=== PATIENT | female | born 1970 | race Two or more races ===

== ENCOUNTER 2020-11-24 13:54 | Outpatient (REF) | payer OTHER, SELFPAY ==
--- NOTE | 2020-11-24 | MM_ITS ---
EXAMINATION: MM SCREENING DIGITAL BREAST TOMOSYNTHESIS, BILATERAL CLINICAL INFORMATION: Screening. Asymptomatic. The lifetime risk of breast cancer based on the Tyrer-Cuzick Model is 9%. COMPARISON: Mammography: 11/19/2019, 11/12/2018, 03/16/2015 TECHNIQUE: Digital breast tomosynthesis is performed in both the craniocaudal and mediolateral oblique views along with computer-aided detection (CAD). Synthesized 2D images are generated from the tomosynthesis. FINDINGS: There are scattered areas of fibroglandular density (ACR BI-RADS breast composition Category b). Parenchymal pattern is similar to prior studies. There is no interval mass or developing density or architectural abnormality. Again, there is a chronic stable 2 cm mass anterior central right breast and a benign coarse calcification central upper outer right breast. Fine calcifications mid upper inner left breast are stable from prior study. MM/MM tomosynthesis screening BI IMPRESSION: No significant changes from prior exams. ASSESSMENT: BI-RADS 2: Benign RECOMMENDATION: Routine annual mammography screening. This patient's information was entered into a reminder system with a target due date for their next mammogram.
== END 2020-11-24 13:55 | disposition home or self-care (01) ==
LOC: HO.MAMMO 13:54
PROVIDERS: Visit Provider Internal Medicine
DX: Z12.31 Encounter for screening mammogram for malignant neoplasm of breast (principal)
CPT/HCPCS: 77063; 77067

== ENCOUNTER 2021-01-04 10:13 | Outpatient (REF) | payer OTHER, SELFPAY | END 2021-01-04 10:14 | disposition home or self-care (01) | LOC: HO.LAB 10:13 | PROVIDERS: Visit Provider Internal Medicine | DX: Z20.822 Contact with and (suspected) exposure to COVID-19 (principal) | CPT/HCPCS: 36415; C9803; U0003; U0005 ==

== ENCOUNTER 2021-05-08 11:40 | Emergency (ER) | payer OTHER, SELFPAY ==
--- NOTE | 2021-05-08 | ECG_ITS ---
Test Reason : CHEST PAIN Blood Pressure : / mmHG Vent. Rate : 069 BPM Atrial Rate : 069 BPM P-R Int : 186 ms QRS Dur : 082 ms QT Int : 384 ms P-R-T Axes : 061 073 040 degrees QTc Int : 411 ms Normal sinus rhythm Septal infarct (cited on or before 08-MAY-2021) Abnormal ECG When compared with ECG of 17-JUN-2019 12:09, Nonspecific T wave abnormality, worse in Inferior leads and lateral leads Referred By: Generic ED Physician Electronically Signed By:ARIE POE
--- NOTE | ~2021-05-08 | XR_ITS ---
EXAMINATION: XR CHEST CLINICAL INFORMATION: Chest pain COMPARISON: 06/17/2019 TECHNIQUE: Frontal view of the chest was obtained. FINDINGS: No significant abnormality is noted involving the heart, lungs, mediastinum, bony thorax or soft tissues. XR/XR chest 1V IMPRESSION: Unremarkable examination.
--- NOTE | ~2021-05-08 | CT_ITS ---
EXAMINATION: CT HEAD WITHOUT CONTRAST CLINICAL INFORMATION: Headache and dizziness COMPARISON: None TECHNIQUE: Contiguous axial imaging was performed from the skull base to vertex without intravenous administration of contrast. This CT examination was performed using dose optimization techniques as appropriate, variously including the following: *Automated exposure control *Adjustment of mA and/or kV according to patient size (this includes techniques or standardized protocols for targeted exams where dose is matched to indication/reason for exam; i.e. extremities or head) *Use of iterative reconstruction technique DLP: 731 mGy-cm FINDINGS: There is no evidence of acute intracranial hemorrhage or territorial infarction. No abnormal mass effect or midline shift is seen. Del Rosario to white matter differentiation is well preserved. No extra-axial fluid collections are identified. The ventricles are normal in size. There is no abnormal attenuation within the brain parenchyma. The osseous structures and soft tissues are normal. The mastoid air cells and visualized portions of the paranasal sinuses are well aerated. CT/CT head/brain wo con IMPRESSION: No acute intracranial pathology.
[2021-05-08 12:53] VITALS: BP 123/61; PULSE 74; RESP 18; TEMP 36.1; O2SAT 98; BMI 29.3
--- NOTE | 2021-05-08 15:04 | ED_ITS ---
HPI - General Adult General Chief complaint: General Medical Stated complaint: headache Time Seen by Provider: 05/08/21 14:37 Source: patient and installation supervisor Mode of arrival: ambulatory Limitations: no limitations History of Present Illness HPI narrative: 51-year-old female came in for evaluation of multiple compla ints. after patient celebrated her brother birthday 2 days ago, patient woke up that night with mild chest pain, cramps in her both legs, dizziness, and headache, patient felt jittery and had 1 stool incontinence. Next day patient been having a constant dull ache to the mid chest with no radia tion, but felt dizziness (room spinning) with headache all day yesterday. Above symptoms persist till today. No fever, no chills. Related Data Previous Rx's Medication Instructions Recorded pravastatin 20 mg tablet 20 mg PO BEDTIME 90 Days #90 tab 04/23/21 Allergies Allergy/AdvReac Type Severity Reaction Status Date / Time adalimumab [Humira] Allergy Intermediate psoriasis Verified 04/23/21 16:23 worsened atorvastatin Allergy Intermediate dizziness Verified 04/23/21 16:23 Penicillins [PENICILLINS] Allergy Intermediate DIZZINESS, Verified 04/23/21 16:23 rash rosuvastatin AdvReac Intermediate diarrhea, Verified 04/23/21 16:24 dizziness Review of Systems Review of Systems: all other systems are reviewed and are negative Constitutional: Reports as per HPI and Reports no additional constitutional complaints Eyes: Reports as per HPI and Reports no additional eye complaints Reports system reviewed and no additional complaints, except as documented Cardiovascular: Reports as per HPI and Reports no additional cardiovascular complaints Respiratory: Reports as per HPI and Reports no additional respiratory complaints Gastrointestinal: Reports as per HPI and Reports no additional gastrointestinal complaints Genitourinary: Reports no additional female genitourinary complaints Musculoskeletal: Reports no additional musculoskeletal complaints Skin/Breast: Reports system reviewed and no additional complaints, except as docu Psychiatric: Reports no additional psychiatric complaints Endocrine: Reports no additional endocrine complaints Hematologic/Lymphatic: Reports no additional hematologic/lymphatic complaints Allergic/Immunologic: Reports no additional allergic/immunologic complaints Reports system reviewed and no additional complaints, except as documented and Reports Abnormal speech present [facility] Past Medical History Medical History Dyslipidemia Psoriasis Surgical History No pertinent past surgical history Family History Family History Father Hypertension Stroke Mother Hypertension Son In good health Son In good health Son In good health Brother In good health Brother In good health Brother In good health Brother In good health Brother In good health Social History Social History Housing: House Alcohol intake: never Patient Tobacco Use Status: Current everyday Tobacco user Tobacco use type: Cigarette Cigarettes Per Day: 10 e-Cigarette/Vaping Use: Never Used Second Hand Smoke Exposure: No Use of substances other than those prescribed or required for medical reasons: No Advance Directives: No Advance Directives Information Provided: No Patient : No service: No Current occupational status: employed Current occupational exposures/hazards: No Physical Exam Vital Signs: Vital Signs: Last Vital Signs Temp 97.7 F 05/08/21 15:27 Pulse 73 05/08/21 15:27 Resp 18 05/08/21 15:27 BP 128/71 05/08/21 15:27 Pulse Ox 100 05/08/21 15:27 Body Mass Index 29.3 vital signs have been reviewed as appeared to be correct. Blood pressure normal. Heart rate normal. Respiration rate normal. Temperature normal. Oxygen saturation normal. Appearance: Alert. Oriented X3. No acute distress. Head: Normal external exam. Normocephalic. Atraumatic. No Gloria signs noted. No raccoon eyes noted Eyes: PERRLA. EOMI. Conjunctiva and sclera normal. Eyelids normal. ENT: TM's Normal. Pharynx normal. Uvula midline. Moist mucous membranes. No trismus noted. No drooling noted. No muffled voice noted. Neck: Normal inspection. Neck supple. FROM. No adenopathy. Thyroid Normal. No meningeal signs. No neck mass noted. CVS: Normal heart rate and rhythm. Heart sound normal. No murmurs noted. Pulses normal throughout. Respiratory: No respiratory distress. Painless inspiration. Breath sounds normal. No wheezes/rales/rhonchi noted. Chest nontender. No accessory muscle usage noted or decreased air movement noted. Abdomen: Soft and nontender. Bowel sounds normal in all 4 quadrants. No distention noted. No organomegaly noted. No visible injury noted. Back: No CVA tenderness. Full range of motion noted. Skin: Skin warm and dry. Normal skin color. Normal skin turgor. No rashes/lesions/lacerations noted. Extremities: No lower extremity edema. Extremities exhibit normal range of motion. Extremities nontender. Neuro: Oriented X 3. No motor deficit. No sensory deficit. Reflexes normal. Course Course Course Narrative: assessment and plan. This is a 51-year-old female came in with multiple complaints of chest pain, dizziness, headache, overall not feeling well. Patient has a normal neuro exam /Head CT, unremarkable EKG with a negative high sensitive troponin, rest of the labs are unremarkable. Reassured the patient and discharged With follow-up with her PCP as an outpatient. Medical Decision Making Lab Data Lab results reviewed: Yes I reviewed the patient's lab results. Result diagrams: 05/08/21 15:26 05/08/21 15:26 Labs: Lab Results 05/08/21 05/08/21 05/08/21 Range/Units 15:26 15:26 15:26 WBC 10.4 (4.8-10.8) X10*3/uL RBC 4.46 (4.20-5.50) X10*6/uL Hgb 13.2 (12.0-16.0) g/dl Hct 40.2 (37-47) % MCV 90.1 (80-98) fL MCH 29.6 (27.0-33.0) pg MCHC 32.8 (31.0-35.0) g/dl RDW 13.6 (11.0-16.0) % Plt Count 381 (160-400) X10*3/uL MPV 9.6 (9.4-12.3) fL Immature Gran % (Auto) 0.4 (0.0-0.4) % Neut % (Auto) 52.8 (45-73) % Lymph % (Auto) 34.0 (20-40) % Prentiss % (Auto) 7.7 (2-11) % Eos % (Auto) 3.8 (0-4) % Baso % (Auto) 1.3 (0-2) % Lymph # (Auto) 3.6 (1.2-4.9) X10*3/uL Prentiss # (Auto) 0.8 (0.1-1.2) X10*3/uL Eos # (Auto) 0.4 (0.0-0.4) X10*3/uL Baso # (Auto) 0.1 (0.0-0.2) X10*3/uL Abs Immat Gran (auto) 0.04 H (0.00-0.03) X10*3/uL Absolute Neuts (auto) 5.5 (2.0-8.3) X10*3/uL Absolute Nucleated RBC 0.000 (0.0-0.012) X10*3/uL Nucleated RBC % (auto) 0.0 (0.0-0.2) /100WBC D-Dimer < 200 NG/ML Sodium 140 (135-145) mmol/L Potassium 4.1 (3.3-5.1) mmol/L Chloride 106 (96-108) mmol/L Carbon Dioxide 25 (22-29) mmol/L Anion Gap 13 (12-20) BUN 19 H (9-16) mg/dL Creatinine 0.78 (0.5-1.4) mg/dL Estim Creat Clear Calc 94.4 Estimated GFR > 60 Random Glucose 89 (60-115) mg/dL Calcium 9.3 (8.4-10.2) mg/dL Total Bilirubin 0.4 (0.0-1.0) mg/dL Direct Bilirubin < 0.2 (0.0-0.5) mg/dL AST 12 (5-31) U/L ALT 16 (0-31) U/L Alkaline Phosphatase 97 (39-117) U/L Total Creatine Kinase 109 (26-140) U/L Troponin I High Sens (<3.5-17.0) ng/L Total Protein 7.5 (6.5-8.0) g/dL Albumin 3.9 (3.5-5.0) g/dL Lipase 69 (8-78) U/L COVID-19 (LUIZ) (Negative) COVID-19 Clin Com 05/08/21 05/08/21 Range/Units 15:26 15:26 WBC (4.8-10.8) X10*3/uL RBC (4.20-5.50) X10*6/uL Hgb (12.0-16.0) g/dl Hct (37-47) % MCV (80-98) fL MCH (27.0-33.0) pg MCHC (31.0-35.0) g/dl RDW (11.0-16.0) % Plt Count (160-400) X10*3/uL MPV (9.4-12.3) fL Immature Gran % (Auto) (0.0-0.4) % Neut % (Auto) (45-73) % Lymph % (Auto) (20-40) % Prentiss % (Auto) (2-11) % Eos % (Auto) (0-4) % Baso % (Auto) (0-2) % Lymph # (Auto) (1.2-4.9) X10*3/uL Prentiss # (Auto) (0.1-1.2) X10*3/uL Eos # (Auto) (0.0-0.4) X10*3/uL Baso # (Auto) (0.0-0.2) X10*3/uL Abs Immat Gran (auto) (0.00-0.03) X10*3/uL Absolute Neuts (auto) (2.0-8.3) X10*3/uL Absolute Nucleated RBC (0.0-0.012) X10*3/uL Nucleated RBC % (auto) (0.0-0.2) /100WBC D-Dimer NG/ML Sodium (135-145) mmol/L Potassium (3.3-5.1) mmol/L Chloride (96-108) mmol/L Carbon Dioxide (22-29) mmol/L Anion Gap (12-20) BUN (9-16) mg/dL Creatinine (0.5-1.4) mg/dL Estim Creat Clear Calc Estimated GFR Random Glucose (60-115) mg/dL Calcium (8.4-10.2) mg/dL Total Bilirubin (0.0-1.0) mg/dL Direct Bilirubin (0.0-0.5) mg/dL AST (5-31) U/L ALT (0-31) U/L Alkaline Phosphatase (39-117) U/L Total Creatine Kinase (26-140) U/L Troponin I High Sens < 3.5 (<3.5-17.0) ng/L Total Protein (6.5-8.0) g/dL Albumin (3.5-5.0) g/dL Lipase (8-78) U/L COVID-19 (LUIZ) Negative (Negative) COVID-19 Clin Com See Note Imaging Data Chest x-ray: Radiologist's impression: No acute pathology. CT scan - head: Radiologist's impression: Unremarkable head CT. ECG Data Interpretation: normal sinus rhythm at 69 beats per minute, normal axis deviation, normal intervals, nonspecific T-wave changes. Discharge Plan Discharge Clinical Impression: Chest pain, Dizziness Patient Disposition: Home, Self-Care Instructions: Dizziness (ED) Prescriptions: No Action pravastatin 20 mg tablet 20 mg PO BEDTIME 90 Days Qty: 90 RF: 1 Referrals: Ly Mendoza MD [Primary Care Provider] - 2 days
[2021-05-08 15:27] VITALS: BP 128/71; PULSE 73; RESP 18; TEMP 36.5; O2SAT 100
--- NOTE | 2021-05-08 15:29 | PC.NURSE ---
iv inserted, labs drawn, covid swab obtained, will continue to monitor.
[2021-05-08 15:38] LABS: MANUAL DIFF FLAG NO
[2021-05-08 15:41] LABS: Basophils Absolute Auto 0.1 X10*3/uL (0.0-0.2); Basophils Percent Auto 1.3 % (0-2); Eosinophils Absolute Auto 0.4 X10*3/uL (0.0-0.4); Eosinophils Percent Auto 3.8 % (0-4); Hematocrit 40.2 % (37-47); Hemoglobin 13.2 g/dl (12.0-16.0); Imm Gran Abs Auto 0.04 X10*3/uL (0.00-0.03); Imm Gran Pct Auto 0.4 % (0.0-0.4); Lymphocytes Absolute Auto 3.6 X10*3/uL (1.2-4.9); Mean Corpuscular HGB Conc 32.8 g/dl (31.0-35.0); Mean Corpuscular Hemoglobin 29.6 pg (27.0-33.0); Mean Corpuscular Volume 90.1 fL (80-98); Mean Platelet Volume 9.6 fL (9.4-12.3); Monocytes Absolute Auto 0.8 X10*3/uL (0.1-1.2); Monocytes Percent Auto 7.7 % (2-11); Neutrophils Absolute Auto 5.5 X10*3/uL (2.0-8.3); Neutrophils Percent Auto 52.8 % (45-73); Platelet Count 381 X10*3/uL (160-400); Red Blood Count 4.46 X10*6/uL (4.20-5.50); Red Cell Distribution Width 13.6 % (11.0-16.0); White Blood Count 10.4 X10*3/uL (4.8-10.8)
[2021-05-08 15:52] LABS: D Dimer < 200 NG/ML
[2021-05-08 16:01] LABS: COVID-19 Test Negative (Negative); IDNOW Serial# 9DD0AD1C
[2021-05-08 16:12] LABS: Troponin-I High Sensitivity < 3.5 ng/L (<3.5-17.0)
[2021-05-08 16:15] LABS: Alanine Aminotransferase 16 U/L (0-31); Albumin Level 3.9 g/dL (3.5-5.0); Alkaline Phosphatase 97 U/L (39-117); Anion Gap 13 (12-20); Aspartate Amino Transferase 12 U/L (5-31); Bilirubin Direct < 0.2 mg/dL (0.0-0.5); Bilirubin Total 0.4 mg/dL (0.0-1.0); Blood Urea Nitrogen 19 mg/dL (9-16); Calcium 9.3 mg/dL (8.4-10.2); Carbon Dioxide 25 mmol/L (22-29); Chloride 106 mmol/L (96-108); Creatinine Clr Calc Pharmacy 94.4; Estimated Glomerular Filt Rate > 60; Glucose Random 89 mg/dL (60-115); Lipase 69 U/L (8-78); Potassium 4.1 mmol/L (3.3-5.1); Sodium 140 mmol/L (135-145); Total Protein 7.5 g/dL (6.5-8.0)
[2021-05-08 18:00] VITALS: BP 116/72; PULSE 78; RESP 18; TEMP 36.6; O2SAT 98
--- NOTE | 2021-05-08 18:07 | PC.NURSE ---
patient a&ox3, family at bedside, pt continue to c/o headache, pts vitals stable, awaiting results of ct scan, pt aware we need urine, will continue to monitor.
== END 2021-05-08 18:46 | disposition home or self-care (01) ==
PROVIDERS: Emergency Provider Emergency Medicine; PCP Internal Medicine
DX: R07.9 Chest pain, unspecified (principal); R42 Dizziness and giddiness; Z20.822 Contact with and (suspected) exposure to COVID-19
CPT/HCPCS: 36415; 70450; 71045; 80048; 80076; 82550; 83690; 84484; 85025; 85379; 87635; 93005; 99285

== ENCOUNTER 2021-09-13 08:38 | Emergency (ER) | payer OTHER, SELFPAY ==
--- NOTE | ~2021-09-13 | XR_ITS ---
EXAMINATION: XR CHEST CLINICAL INFORMATION: Cough, fever COMPARISON: Chest radiographs 05/08/2021, 06/17/2019 TECHNIQUE: 2 views of the chest were obtained. FINDINGS: The lungs are clear. There is no airspace consolidation or groundglass opacity or effusion. The cardiac and hilar and mediastinal contours and visualized bony structures are unremarkable. XR/XR chest 2V IMPRESSION: Unremarkable examination.
[2021-09-13 08:46] VITALS: BP 148/73; PULSE 85; RESP 19; TEMP 36.6; O2SAT 100; BMI 26.6
[2021-09-13 09:41] LABS: IDNOW Serial# 08D9AD1C; Strep A Nucleic Acid Negative (Negative)
[2021-09-13 09:42] LABS: IDNOW Serial# 9DD0AD1C
[2021-09-13 09:43] LABS: COVID-19 Test Negative (Negative)
--- NOTE | 2021-09-13 10:33 | ED_ITS ---
HPI - URI/Sore Throat General Chief Complaint: Upper Respiratory Symptoms Stated Complaint: headache, cough, fever, chest pain Time Seen by Provider: 09/13/21 10:32 Source: patient Mode of arrival: ambulatory Limitations: no limitations History of Present Illness HPI Narrative: patient has headache, sore throat and chest pain. Patient has had this for 3 days, 2 nights ago she had fever. patient is vaccinated to COVID and she denies any exposures. MD elicited complaint: fever and sore throat Onset (ago): day(s) Consistency: constant Severity: mild Relieving factors: nothing Associated symptoms: fever, chills, headache, cough and chest pain Related Data Previous Rx's Medication Instructions Recorded pravastatin 20 mg tablet 20 mg PO BEDTIME 90 Days #90 tab 04/23/21 Allergies Allergy/AdvReac Type Severity Reaction Status Date / Time adalimumab [Humira] Allergy Intermediate psoriasis Verified 08/08/21 14:19 worsened atorvastatin Allergy Intermediate dizziness Verified 08/08/21 14:19 Penicillins [PENICILLINS] Allergy Intermediate DIZZINESS, Verified 08/08/21 14:19 rash rosuvastatin AdvReac Intermediate diarrhea, Verified 08/08/21 14:19 dizziness Review of Systems Constitutional: Constitutional: Reports no additional constitutional c omplaints Eyes: Eyes: Reports no additional eye complaints ENT: Denies dizziness Cardiovascular: Cardiovascular: Reports no additional cardiovascular complaints Respiratory: Respiratory: Reports as per HPI Gastrointestinal: Gastrointestinal: Reports no additional gastrointestinal complaints Genitourinary: Genitourinary: Reports no additional female genitourinary complaints Musculoskeletal: Musculoskeletal: Reports no additional musculoskeletal complaints Integumentary/Breasts: Skin/Breast: Denies rash Neurologic: Reports system reviewed and no additional complaints, except as documented, Denies dizziness and Denies Sensory deficit (Neuro) Psychiatric: Psychiatric: Denies anxiety [facility] Past Medical History Medical History Dyslipidemia Psoriasis Surgical History No pertinent past surgical history Family History Family History Father Hypertension Stroke Mother Hypertension Son In good health Son In good health Son In good health Brother In good health Brother In good health Brother In good health Brother In good health Brother In good health Social History Social History Housing: House Alcohol intake: current Alcohol intake frequency: holidays/special occasions only Alcohol type: beer Patient Tobacco Use Status: Current everyday Tobacco user Tobacco use type: Cigarette Cigarettes Per Day: 10 e-Cigarette/Vaping Use: Never Used Second Hand Smoke Exposure: No Advance Directives: No Patient : No service: No Current occupational status: employed Current occupational exposures/hazards: No Physical Exam Vital Signs: Vital Signs: Last Vital Signs Temp 98 F 09/13/21 08:46 Pulse 85 09/13/21 08:46 Resp 19 09/13/21 08:46 BP 148/73 H 09/13/21 08:46 Pulse Ox 100 09/13/21 08:46 Body Mass Index 26.6 Const: General: healthy appearing Nutritional Appearance: average body habitus Orientation/consciousness: oriented to person and patient oriented x3 Limitations: no limitations HENMT: Head: Yes normal to inspection Ears: external ears normal General nose exam: Normal external nose present Mouth: Normal oral and palatal mucosa present and oropharynx normal Throat: Yes posterior oropharynx normal Eyes: General: appearance normal, both eyes and all related structures Neck: Other: supple Neck: Yes normal visual inspection Chest: Chest palpation & inspection: normal inspection of the chest Resp: Auscultation: clear to auscultation bilaterally Cardio: Jugular venous distension: no JVD Rate: regular rate Rhythm: regular rhythm Heart sounds: S1 normal heart sound present and S2 normal heart sound present GI: Inspection: Yes normal to inspection Palpation (GI): Soft to palpation, nontender and No hepatosplenomegaly present Auscultation: normal bowel sounds : General: Yes no CVA tenderness Back/Spine/Pelvis: Back: no CVA tenderness Skin: General skin exam: no rashes or lesions noted Neuro: General: oriented to person and patient oriented x3 Cranial nerves: Yes CN's II-XII intact bilaterally Motor exam (neuro): 5/5 motor strength present throughout Sensory Exam: No Sensory deficit (Neuro) Extrem: General: Yes normal to inspection Psych: Appearance: grossly normal Course Course Course Narrative: patient with viral illness will dc home MDM - URI/Sore Throat Lab Data Labs: Lab Results 11/11/21 11/11/21 Range/Units 09:18 09:18 COVID-19 (LUIZ) Negative (Negative) COVID-19 Clin Com See Note S. pyogenes GrpA RUIZ Negative (Negative) Imaging Data Chest x-ray: Radiologist's impression: FINDINGS: The lungs are clear. There is no airspace consolidation or groundglass opacity or effusion. The cardiac and hilar and mediastinal contours and visualized bony structures are unremarkable. XR/XR chest 2V IMPRESSION: Unremarkable examination. Discharge Plan Discharge Clinical Impression: Upper respiratory infection Qualifiers: URI type: unspecified URI Qualified Code(s): J06.9 - Acute upper respiratory infection, unspecified Patient Disposition: Home, Self-Care Instructions: Upper Respiratory Infection (ED) Prescriptions: No Action pravastatin 20 mg tablet 20 mg PO BEDTIME 90 Days Qty: 90 RF: 1 Referrals: Ly Mendoza MD [Primary Care Provider] - 1 week
[2021-09-13] MEDS: Ibuprofen 600 MG TABLET PO (10:59)
== END 2021-09-13 13:06 | disposition home or self-care (01) ==
PROVIDERS: Emergency Provider Emergency Medicine; PCP Internal Medicine
DX: J06.9 Acute upper respiratory infection, unspecified (principal); Z20.822 Contact with and (suspected) exposure to COVID-19
CPT/HCPCS: 36415; 71046; 87635; 87651; 99283; 99284

== ENCOUNTER 2021-11-13 15:19 | Emergency (ER) | payer OTHER, SELFPAY ==
--- NOTE | ~2021-11-13 | XR_ITS ---
EXAMINATION: XR FINGER, RIGHT CLINICAL INFORMATION: Wire stuck in the common COMPARISON: None TECHNIQUE: Three views of the right thumb. FINDINGS: There is a wire seen in the soft tissues adjacent to the volar and radial aspect of the distal phalanx of the thumb. No fracture or dislocation is seen. Joint spaces are normal. Soft tissues are otherwise normal. XR/XR finger RT min 2V IMPRESSION: Soft tissue foreign body/wire in the distal thumb.
[2021-11-13 16:43] VITALS: BP 139/69; PULSE 78; RESP 18; TEMP 36.6; O2SAT 99; BMI 29.0
--- NOTE | 2021-11-13 17:10 | ED.WOUNDLAC ---
HPI - Wound/Laceration General Chief Complaint: Wound/Laceration Stated Complaint: guitar wire stuck in L thumb Time Seen by Provider: 11/13/21 17:09 Source: patient and process planner Mode of arrival: ambulatory Limitations: no limitations History of Present Illness HPI narrative: 51 y/o female with history of psoriasis and HLD who presents to the ER with metal wire sticking out of her thumb after she was playing with a toy guitar this afternoon. She tried to pull at it slightly but it seemed stuck. She left it in place and came to the ER for further evaluation. No bleeding on arrival. She is not sure when her last tetanus shot was. Onset (ago): minute(s) Extremity Location: right: hand (thumb) Place: home Context: accidental Associated symptoms: pain Related Data Previous Rx's Medication Instructions Recorded pravastatin 20 mg tablet 20 mg PO BEDTIME 90 Days #90 tab 04/23/21 ibuprofen 600 mg tablet 600 mg PO Q8H PRN #20 tab 09/13/21 [id number] 2.5 20 ml PO Q4H PRN #118 ml 09/13/21 mg-5 mg-50 mg/5 mL oral liquid (Robitussin Cough and Cold CF) naproxen 500 mg tablet 500 mg PO BID PRN #20 tab 11/13/21 Allergies Allergy/AdvReac Type Severity Reaction Status Date / Time adalimumab [Humira] Allergy Intermediate psoriasis Verified 08/08/21 14:19 worsened atorvastatin Allergy Intermediate dizziness Verified 08/08/21 14:19 Penicillins [PENICILLINS] Allergy Intermediate DIZZINESS, Verified 08/08/21 14:19 rash rosuvastatin AdvReac Intermediate diarrhea, Verified 08/08/21 14:19 dizziness Review of Systems Review of Systems: Constitutional: No Fever, No Chills Gastrointestinal: No Nausea, No Vomiting Musculoskeletal: No joint pain, No Myalgias Skin: + Skin Lesions, No rash Neuro: No Weakness, No Numbness, No Dizziness, No Headache Psych: + Anxiety/Panic, No Depression Heme/Lymph: No Bruising PMFSH Past Medical History Medical History Dyslipidemia Psoriasis Surgical History No pertinent past surgical history Family History Family History Father Hypertension Stroke Mother Hypertension Son In good health Son In good health Son In good health Brother In good health Brother In good health Brother In good health Brother In good health Brother In good health Social History Social History Housing: House Alcohol intake: current Alcohol intake frequency: holidays/special occasions only Alcohol type: beer Patient Tobacco Use Status: Current everyday Tobacco user Tobacco use type: Cigarette Cigarettes Per Day: 10 e-Cigarette/Vaping Use: Never Used Second Hand Smoke Exposure: No Advance Directives: No Advance Directives Information Provided: No Patient : No service: No Current occupational status: employed Current occupational exposures/hazards: No Physical Exam Vital Signs: Vital Signs: Last Vital Signs Temp 97.9 F 11/13/21 16:43 Pulse 78 11/13/21 16:43 Resp 18 11/13/21 16:43 BP 139/69 11/13/21 16:43 Pulse Ox 99 11/13/21 16:43 BMI result Body Mass Index 29.0 Appearance: Alert. Oriented X3. No acute distress. HEENT: normal inspection CVS: Normal heart rate and rhythm. Pulses normal. Respiratory: No respiratory distress. Skin: Skin warm and dry. Normal skin color. Normal skin turgor. No rashes. Extremities: right thumb with a long wire protruding from the thumb pulp, cap refill less than 3 seconds. Normal range of motion of the thumb. Neuro: Oriented X 3. No motor deficit. No sensory deficit. Course Course Course Narrative: 51-year-old female presenting to the ER with right thumb foreign body, wire protruding from the thumb. No active bleeding. Will get x-ray to assess trajectory and depth below the skin Reevaluation(s) Reevaluation #1: X-ray shows the wire does not extend to the point of the bone. It does carb slightly. Wire was successfully removed manually and patient tolerated well. No further bleeding. Betadine was used for antiseptic soak afterwards. No need for oral antibiotics at this time. Topical bacitracin was applied along with a dressing. Stable for discharge home with supportive care. Signs of infection were discussed and patient expressed understanding to monitor for these. Procedures Foreign Body Removal Time Out Performed: no Site: right and hand Description of foreign body: toy (wire) Sedation/Analgesia: none Technique: manual removal Confirmed by:: direct visualization and radiograph Complications: none Post-procedure exam: awake, alert, normal BP, normal HR and normal O2 sat Neurovascular: normal distal pulse, normal capillary fill, distal light touch sensation intact and distal motor function normal Critical Care Time Critical Care Time Critical Care Time: No Discharge Plan Discharge Clinical Impression: Puncture wound Acute foreign body of thumb Qualifiers: Encounter type: initial encounter Laterality: right Qualified Code(s): S60.351A - Superficial foreign body of right thumb, initial encounter Patient Disposition: Home, Self-Care Instructions: Soft Tissue Foreign Body (ED), Puncture Wound (ED) Additional Instructions: Your x-ray showed the wire was stuck in the skin and did not hit the bone. Use antibiotic ointment/bacitracin 2 times per day. Keep clean and covered. Monitor for signs of infection including increased pain, swelling, redness, warmth or drainage of pus. If you develop these symptoms call your doctor or come back to the ER for further evaluation. Castelan radiograf?a mostr? que el cable estaba atascado en la piel y no celina? el hueso. Use pomada antibi?todd/bacitracina 2 veces al d?a. Mantener limpio y cubierto. Controle si hay signos de infecci?n, diana aumento del dolor, hinchaz?n, enrojecimiento, calor o drenaje de pus. Si desarrolla estos s?ntomas, llame a castelan m?dico o regrese a la andrzej de emergencias para elizabeth evaluaci?n adicional. Prescriptions: New naproxen 500 mg tablet 500 mg PO BID PRN (Reason: pain) Qty: 20 RF: 0 No Action ibuprofen 600 mg tablet 600 mg PO Q8H PRN (Reason: fever) Qty: 20 RF: 0 Robitussin Cough and Cold CF 2.5-5-50 mg/5 mL liquid 20 ml PO Q4H PRN (Reason: cough) Qty: 118 RF: 0 pravastatin 20 mg tablet 20 mg PO BEDTIME 90 Days Qty: 90 RF: 1 Print Language: [place] Islander
[2021-11-13] MEDS: Diphth,Pertus(ACell),Tet Adult 0.5 ML SYRINGE IM (17:50)
== END 2021-11-13 17:59 | disposition home or self-care (01) ==
PROVIDERS: Emergency Provider Emergency Medicine; PCP Internal Medicine
DX: S60.351A Superficial foreign body of right thumb, initial encounter (principal); S60.311A Abrasion of right thumb, initial encounter; M79.641 Pain in right hand; Y28.9XXA Contact with unspecified sharp object, undetermined intent, initial encounter; Y93.9 Activity, unspecified; Y92.9 Unspecified place or not applicable; Y99.9 Unspecified external cause status; Z79.899 Other long term (current) drug therapy
CPT/HCPCS: 10120; 73140; 90471; 90715; 99283; 99284

== ENCOUNTER 2021-12-25 11:11 | Outpatient (REF) | payer OTHER, SELFPAY ==
--- NOTE | ~2021-12-25 | XR_ITS ---
EXAMINATION: XR FOOT, RIGHT CLINICAL INFORMATION: Pain in right foot. COMPARISON: None TECHNIQUE: AP, lateral, and oblique views of the right foot. FINDINGS: Bone alignment is normal. No acute fracture or dislocation is seen. There is a small well-corticated soft tissue ossification inferior to the medial malleolus likely related to old trauma. The joint spaces are normal. Soft tissues are normal. XR/XR foot RT 2V IMPRESSION: Normal right foot.
--- NOTE | ~2021-12-25 | US_ITS ---
EXAMINATION: US VENOUS ULTRASOUND WITH DOPPLER LOWER EXTREMITY, RIGHT CLINICAL INFORMATION: Pain right lower extremity. Assess for occult DVT. COMPARISON: None TECHNIQUE: Ultrasound of the deep veins is performed from the hip to the calf with compression sonography and color and pulse Doppler assessment. Spectral analysis with color-flow imaging is performed. FINDINGS: There is normal venous compression and respiratory variation and augmented flow. The visualized common femoral vein, superficial femoral vein, profunda femoral vein, popliteal vein, and the trifurcation region shows no evidence of deep venous thrombosis. No popliteal fossa cyst. US/US venous duplex LE RT IMPRESSION: No DVT demonstrated in the right lower extremity.
[2021-12-25 13:04] LABS: Alanine Aminotransferase 11 U/L (0-31); Albumin Level 3.9 g/dL (3.5-5.0); Alkaline Phosphatase 87 U/L (39-117); Anion Gap 15 (12-20); Aspartate Amino Transferase 10 U/L (5-31); Bilirubin Total 0.4 mg/dL (0.0-1.0); Blood Urea Nitrogen 15 mg/dL (9-16); Calcium 9.1 mg/dL (8.4-10.2); Carbon Dioxide 22 mmol/L (22-29); Chloride 106 mmol/L (96-108); Cholesterol 221 mg/dL; Estimated Glomerular Filt Rate > 60; Glucose Fasting 85 mg/dL (60-99); HDL Cholesterol 47 mg/dL; LDL Cholesterol Calculated 140 mg/dl; Potassium 4.7 mmol/L (3.3-5.1); Sodium 138 mmol/L (135-145); Total Protein 7.5 g/dL (6.5-8.0); Triglycerides 174 mg/dL
== END 2021-12-25 11:12 | disposition home or self-care (01) ==
LOC: HO.US 11:11
PROVIDERS: PCP Internal Medicine; Visit Provider Internal Medicine
DX: M79.671 Pain in right foot (principal); M79.604 Pain in right leg; E78.5 Hyperlipidemia, unspecified
CPT/HCPCS: 36415; 73620; 80053; 80061; 93971

== ENCOUNTER 2022-08-15 08:34 | Outpatient (REF) | payer OTHER, SELFPAY ==
[2022-08-15 10:57] LABS: Alanine Aminotransferase 13 U/L (0-31); Alkaline Phosphatase 89 U/L (39-117); Aspartate Amino Transferase 12 U/L (5-31); Bilirubin Total 0.2 mg/dL (0.0-1.0); Blood Urea Nitrogen 14 mg/dL (9-16); Calcium 9.3 mg/dL (8.4-10.2); Cholesterol 237 mg/dL; Estimated Glomerular Filt Rate > 60; Glucose Fasting 88 mg/dL (60-99); HDL Cholesterol 44 mg/dL; LDL Cholesterol Calculated 160 mg/dl; Total Protein 7.4 g/dL (6.5-8.0); Triglycerides 168 mg/dL
[2022-08-15 11:09] LABS: Anion Gap 14 (12-20); Carbon Dioxide 24 mmol/L (22-29); Chloride 105 mmol/L (96-108); Potassium 4.3 mmol/L (3.3-5.1); Sodium 139 mmol/L (135-145)
== END 2022-08-15 08:35 | disposition home or self-care (01) ==
LOC: HO.LAB 08:34
PROVIDERS: PCP Internal Medicine; Visit Provider Internal Medicine
DX: E55.9 Vitamin D deficiency, unspecified (principal); E78.5 Hyperlipidemia, unspecified
CPT/HCPCS: 36415; 80053; 80061; 82306

== ENCOUNTER 2022-09-18 19:08 | Emergency (ER) | payer OTHER, SELFPAY ==
--- NOTE | ~2022-09-18 | CT_ITS ---
EXAMINATION: CT CERVICAL SPINE WITHOUT CONTRAST CLINICAL INFORMATION: Neck pain without trauma COMPARISON: None. TECHNIQUE: Contiguous helical images of the cervical spine were obtained without IV contrast. Multiplanar reconstructions were performed. This CT examination was performed using dose optimization techniques as appropriate, variously including the following: *Automated exposure control *Adjustment of mA and/or kV according to patient size (this includes techniques or standardized protocols for targeted exams where dose is matched to indication/reason for exam; i.e. extremities or head) *Use of iterative reconstruction technique DLP: 513 mGy-cm FINDINGS: Alignment:Normal. No subluxation. Vertebra:No acute fracture. No prevertebral soft tissue swelling. Degenerative disc disease:Intervertebral disc space heights are maintained. Minimal endplate proliferative change and/or small disc calcifications at C3-C4, C4-C5, C5-C6 consistent with minimal degenerative disc disease. Minimal right uncovertebral spurring at C6. Suspected small posterior disc osteophyte complexes at C3-C4, C4-C5, C5-C6 mildly narrowing the spinal canal-limited assessment. Mild right neural foraminal narrowing at C3-C4 due to mild foraminal disc osteophyte complex. Mild right neural foraminal narrowing at C5-C6 due to uncovertebral spurring. Other findings:No cervical lymphadenopathy. Visualized major salivary glands and thyroid gland are unremarkable. Visualized base of the brain is grossly unremarkable. Visualized lung apices are clear. CT/CT cervical spine wo IV con IMPRESSION: 1. No subluxation or acute cervical spine fracture. 2. Mild multilevel degenerative disc disease, as above.
[2022-09-18 20:00] VITALS: BP 154/75; PULSE 77; RESP 20; TEMP 36.2; O2SAT 98; BMI 25.4
--- NOTE | 2022-09-18 20:05 | ED.NECK ---
HPI - Neck Pain/Injury General Chief Complaint: Neck Pain/Injury <Mayra Tang MD - Last Filed: 09/18/22 20:06> Stated Complaint: Pain in the back of neck/head <Mayra Tang MD - Last Filed: 09/18/22 20:06> Time Seen by Provider: 09/18/22 20:40 <Mayra Tang MD - Last Filed: 09/18/22 20:06> Source: patient <AMRIT Matute - Last Filed: 09/18/22 23:42> Mode of arrival: ambulatory <AMRIT Matute - Last Filed: 09/18/22 23:42> Limitations: no limitations <AMRIT Matute Last Filed: 09/18/22 23:42> History of Present Illness HPI Narrative: 52-year-old female presents to ED for neck pain as worse on movement for the past 2 days. Patient denies any trauma, headache, photophobia, nausea, vomiting, fever, chills, rash. Patient denies any recent trauma. <AMRIT Matute - Last Filed: 09/18/22 23:42> Related Data Home Medications: Previous Rx's Medication Instructions Recorded cholecalciferol (vitamin D3) 25 25 mcg PO DAILY 90 days #90 caps 08/15/22 mcg (1,000 unit) capsule pravastatin 40 mg tablet 40 mg PO BEDTIME 90 days #90 tabs 08/15/22 cyclobenzaprine 10 mg tablet 10 mg PO BEDTIME PRN muscle spasm 09/18/22 7 days #7 tabs oxycodone 5 mg capsule 5 mg PO TID PRN pain 3 days #9 caps 09/18/22 prednisone 20 mg tablet 40 mg PO DAILY 5 days #10 tabs 09/18/22 <Mayra Tang MD - Last Filed: 09/18/22 20:06> Allergies/Adverse Reactions: Allergies Allergy/AdvReac Type Severity Reaction Status Date / Time adalimumab [Humira] Allergy Intermediate psoriasis Verified 09/18/22 20:05 worsened atorvastatin Allergy Intermediate dizziness Verified 09/18/22 20:05 Penicillins [PENICILLINS] Allergy Intermediate DIZZINESS, Verified 09/18/22 20:05 rash rosuvastatin AdvReac Intermediate diarrhea, Verified 09/18/22 20:05 dizziness <Mayra Tang MD - Last Filed: 09/18/22 20:06> Review of Systems Review of Systems: Posterior neck pain <AMRIT Matute - Last Filed: 09/18/22 23:42> Yes all other systems are reviewed and are negative <AMRIT Matute - Last Filed: 09/18/22 23:42> PMFSH Past Medical History Medical History: Medical History (Updated 09/18/22 @ 22:57 by AMRIT Matute) Dyslipidemia Pain of right heel Psoriasis Right leg pain <Mayra Tang MD - Last Filed: 09/18/22 20:06> Surgical History: Surgical History No pertinent past surgical history <Mayra Tang MD - Last Filed: 09/18/22 20:06> Family History Family History: Family History Father Hypertension Stroke Mother Hypertension Son In good health Son In good health Son In good health Brother In good health Brother In good health Brother In good health Brother In good health Brother In good health <aMyra Tang MD - Last Filed: 09/18/22 20:06> Social History Social History: Social History Housing: House Alcohol intake: current Alcohol intake frequency: holidays/special occasions only Alcohol type: beer Patient Tobacco Use Status: Current everyday Tobacco user Tobacco use type: Cigarette Cigarettes Per Day: 10 e-Cigarette/Vaping Use: Never Used Second Hand Smoke Exposure: No Advance Directives: No Advance Directives Information Provided: No service: No Current occupational status: employed Current occupational exposures/hazards: No Cognitive needs: No Hearing needs: No Vision needs: No <Mayra Tang MD - Last Filed: 09/18/22 20:06> Physical Exam Vital Signs: Vital Signs: Last Vital Signs Temp 98.3 F 09/18/22 23:13 Pulse 84 09/18/22 23:13 Resp 16 09/18/22 23:13 BP 106/52 L 09/18/22 23:13 Pulse Ox 98 09/18/22 23:13 O2 Del Method 09/18/22 23:13 BMI result Body Mass Index 25.4 <Mayra Tang MD - Last Filed: 09/18/22 20:06> Vital Signs: Last Vital Signs Temp 98.3 F 09/18/22 23:13 Pulse 84 09/18/22 23:13 Resp 16 09/18/22 23:13 BP 106/52 L 09/18/22 23:13 Pulse Ox 98 09/18/22 23:13 O2 Del Method 09/18/22 23:13 BMI result Body Mass Index 25.4 <AMRIT Matute - Last Filed: 09/18/22 23:42> Const: General: cooperative, healthy appearing, comfortable, no acute distress, well developed, alert, awake and Physically active <AMRIT Matute - Last Filed: 09/18/22 23:42> Orientation/consciousness: oriented to time and patient oriented x3 <AMRIT Matute - Last Filed: 09/18/22 23:42> HEENT: Head: Yes normal to inspection, Yes No palpable skull fracture present, Yes normocephalic, Yes atraumatic and No abrasion <AMRIT Matute - Last Filed: 09/18/22 23:42> Eyes: General: appearance normal, both eyes and all related structures <AMRIT Matute - Last Filed: 09/18/22 23:42> Neck: Neck: Yes normal visual inspection, Yes full ROM, Yes no lymphadenopathy, Yes no meningeal signs, Yes trachea midline, Yes supple, No anterior neck swelling and Yes tender (posterior cervical tenderness) <AMRIT Matute - Last Filed: 09/18/22 23:42> Chest: Chest palpation & inspection: normal inspection of the chest and normal palpation of entire chest wall <AMRIT Matute Last Filed: 09/18/22 23:42> Resp: Effort & Inspection: normal respiratory effort and able to speak in complete sentences <AMRIT Matute Last Filed: 09/18/22 23:42> Auscultation: clear to auscultation bilaterally <AMRIT Matute Last Filed: 09/18/22 23:42> Cardio: Jugular venous distension: no JVD <AMRIT Matute Last Filed: 09/18/22 23:42> Heart sounds: S1 normal heart sound present and S2 normal heart sound present <AMRIT Matute - Last Filed: 09/18/22 23:42> GI: Inspection: Yes normal to inspection and No abdominal wall ecchymosis <AMRIT Matute Last Filed: 09/18/22 23:42> Palpation (GI): Soft to palpation, not firm, nontender, no guarding and not rigid <AMRIT Matute Last Filed: 09/18/22 23:42> : General: No CVA tenderness and Yes no CVA tenderness <AMRIT Matute - Last Filed: 09/18/22 23:42> Back/Spine/Pelvis: Back: no CVA tenderness, No CVA tenderness and No back tenderness <AMRIT Matute - Last Filed: 09/18/22 23:42> Skin: General skin exam: no rashes or lesions noted and elasticity normal <AMRIT Matute Last Filed: 09/18/22 23:42> Neuro: General: oriented to time, patient oriented x3, gait normal, tone normal, no meningeal signs and CN's II-XI intact bilaterally <AMRIT Matute - Last Filed: 09/18/22 23:42> Cranial nerves: Yes CN's II-XII intact bilaterally <AMRIT Matute - Last Filed: 09/18/22 23:42> Extrem: General: Yes normal to inspection and Yes full ROM <AMRIT Matute Last Filed: 09/18/22 23:42> Psych: Appearance: grossly normal, well kempt and not disheveled <AMRIT Matute Last Filed: 09/18/22 23:42> Course Course Course Narrative: CT scan Motrin was ordered. <AMRIT Matute Last Filed: 09/18/22 23:42> Reevaluation(s) Reevaluation #1: 52-year-old female came in was neck pain, no injury or no trauma to the neck, no neurological deficit,CT cervical spine was ordered from triage patient was given ibuprofen <Mayra Tang MD - Last Filed: 09/18/22 20:06> Time: 20:05 <Mayra Tang MD - Last Filed: 09/18/22 20:06> Reevaluation #2: CT scan showed arthritis. Patient discharged with pain medication <AMRIT Matute - Last Filed: 09/18/22 23:42> Time: 22:55 <AMRIT Matute - Last Filed: 09/18/22 23:42> Medications Administered Discontinued Medications Generic Name Dose Route Start Last Admin Trade Name Freq PRN Reason Stop Dose Admin Cyclobenzaprine HCl 10 mg 09/18/22 22:12 09/18/22 22:22 Cyclobenzaprine Hcl 10 Mg Tablet PO 09/18/22 22:13 10 mg ONCE ONE Administration Ibuprofen 600 mg 09/18/22 20:04 09/18/22 20:08 Ibuprofen 600 Mg Tablet PO 09/18/22 20:05 600 mg ONCE ONE Administration Oxycodone HCl 5 mg 09/18/22 22:12 09/18/22 22:23 Oxycodone Hcl Immed Release 5 Mg Tablet PO 09/18/22 22:13 5 mg ONCE ONE Administration Prednisone 60 mg 09/18/22 22:12 09/18/22 22:23 Prednisone 20 Mg Tablet PO 09/18/22 22:13 60 mg ONCE ONE Administration <Mayra Tang MD - Last Filed: 09/18/22 20:06> Medications Administered Discontinued Medications Generic Name Dose Route Start Last Admin Trade Name Freq PRN Reason Stop Dose Admin Cyclobenzaprine HCl 10 mg 09/18/22 22:12 09/18/22 22:22 Cyclobenzaprine Hcl 10 Mg Tablet PO 09/18/22 22:13 10 mg ONCE ONE Administration Ibuprofen 600 mg 09/18/22 20:04 09/18/22 20:08 Ibuprofen 600 Mg Tablet PO 09/18/22 20:05 600 mg ONCE ONE Administration Oxycodone HCl 5 mg 09/18/22 22:12 09/18/22 22:23 Oxycodone Hcl Immed Release 5 Mg Tablet PO 09/18/22 22:13 5 mg ONCE ONE Administration Prednisone 60 mg 09/18/22 22:12 09/18/22 22:23 Prednisone 20 Mg Tablet PO 09/18/22 22:13 60 mg ONCE ONE Administration <AMRIT Matute - Last Filed: 09/18/22 23:42> MDM - Neck Pain/Injury MDM Narrative Medical decision making narrative: Cervical radiculopathy <AMRIT Matute - Last Filed: 09/18/22 23:42> Discharge Plan Discharge Clinical Impression: Cervical radiculopathy <Mayra Tang MD - Last Filed: 09/18/22 20:06> Patient Disposition: Home, Self-Care <Mayra Tang MD - Last Filed: 09/18/22 20:06> Instructions: Cervical Radiculopathy (ED) <Mayra Tang MD - Last Filed: 09/18/22 20:06> Additional Instructions: Sauceda tomograf?a computarizada de la [place] cervical muestra elizabeth enfermedad degenerativa del disco. Se le curtis? de norbert con analg?sicos y esteroides. Recomendar seguimiento con sauceda proveedor de atenci?n primaria. Regrese al servicio de urgencias por dolor de louis, fotofobia, n?useas, v?mitos, fiebre, escalofr?os, par?lisis de las extremidades superiores o cualquier otro s?ntoma preocupante. <Mayra Tang MD - Last Filed: 09/18/22 20:06> Prescriptions: New oxycodone 5 mg capsule 5 mg PO TID PRN (Reason: pain) 3 Days Qty: 9 0RF Rx Instructions: Partial Fill upon patient request. Side effect is drowsiness. DO not take at work or while driving. prednisone 20 mg tablet 40 mg PO DAILY 5 Days Qty: 10 0RF cyclobenzaprine 10 mg tablet 10 mg PO BEDTIME PRN (Reason: muscle spasm) 7 Days Qty: 7 0RF No Action pravastatin 40 mg tablet 40 mg PO BEDTIME 90 Days Qty: 90 1RF cholecalciferol (vitamin D3) 25 mcg (1,000 unit) capsule 25 mcg PO DAILY 90 Days Qty: 90 1RF <Mayra Tang MD - Last Filed: 09/18/22 20:06> Stand Alone Forms: Work/School Release <Mayra Tang MD - Last Filed: 09/18/22 20:06> Interventions: ED Discharge Assessment Last Done: 09/18/22 23:14 <Mayra Tang MD - Last Filed: 09/18/22 20:06> Discharge Date/Time: 09/18/22 23:15 <Mayra Tang MD - Last Filed: 09/18/22 20:06> Print Language: Pashto <Mayra Tang MD - Last Filed: 09/18/22 20:06>
[2022-09-18] MEDS: Ibuprofen 600 MG TABLET PO (20:08)
[2022-09-18] MEDS: Cyclobenzaprine HCl 10 MG TABLET PO (22:22)
[2022-09-18] MEDS: predniSONE 20 MG TABLET 60 MG PO (22:23)
[2022-09-18] MEDS: oxyCODONE HCl Immed Release 5 MG TABLET PO (22:23)
[2022-09-18 23:13] VITALS: BP 106/52; PULSE 84; RESP 16; TEMP 36.8; O2SAT 98
== END 2022-09-18 23:15 | disposition home or self-care (01) ==
PROVIDERS: Emergency Provider Internal Medicine; PCP Internal Medicine
DX: M54.12 Radiculopathy, cervical region (principal); F17.210 Nicotine dependence, cigarettes, uncomplicated; E78.5 Hyperlipidemia, unspecified; Z79.02 Long term (current) use of antithrombotics/antiplatelets
CPT/HCPCS: 72125; 99284

== ENCOUNTER 2022-12-12 12:05 | Outpatient (REF) | payer OTHER, SELFPAY ==
--- NOTE | ~2022-12-12 | MM_ITS ---
EXAMINATION: MM SCREENING DIGITAL BREAST TOMOSYNTHESIS, BILATERAL CLINICAL INFORMATION: Screening. Asymptomatic. The lifetime risk of breast cancer based on the Tyrer-Cuzick Model is 8.5%. COMPARISON: Mammography: November 24, 2020 and studies dating back to March 16, 2015 TECHNIQUE: Digital breast tomosynthesis is performed in both the craniocaudal and mediolateral oblique views along with computer-aided detection (CAD). Synthesized 2D images are generated from the tomosynthesis. FINDINGS: The breasts are heterogeneously dense, which may obscure small masses (ACR BI-RADS breast composition Category c). There are no new significant masses, abnormal calcifications, or other abnormalities. Stable bilateral circumscribed densities again seen. MM/MM tomosynthesis screening BI IMPRESSION: No significant changes from prior exam. ASSESSMENT: BI-RADS 2: Benign RECOMMENDATION: Routine annual mammography screening. This patient's information was entered into a reminder system with a target due date for their next mammogram.
== END 2022-12-12 12:06 | disposition home or self-care (01) ==
LOC: HO.MAMMO 12:05
PROVIDERS: PCP Internal Medicine; Visit Provider Internal Medicine
DX: Z12.31 Encounter for screening mammogram for malignant neoplasm of breast (principal)
CPT/HCPCS: 77063; 77067

== ENCOUNTER 2023-04-08 10:06 | Outpatient (REF) | payer OTHER, SELFPAY ==
[2023-04-08 11:15] LABS: Alanine Aminotransferase 13 U/L (0-31); Alkaline Phosphatase 98 U/L (39-117); Anion Gap 12 (12-20); Aspartate Amino Transferase 11 U/L (5-31); Bilirubin Total 0.4 mg/dL (0.0-1.0); Blood Urea Nitrogen 14 mg/dL (9-16); Calcium 9.3 mg/dL (8.4-10.2); Carbon Dioxide 25 mmol/L (22-29); Chloride 107 mmol/L (96-108); Cholesterol 214 mg/dL; Estimated Glomerular Filt Rate > 60; Glucose Fasting 91 mg/dL (60-99); HDL Cholesterol 45 mg/dL; LDL Cholesterol Calculated 143 mg/dl; Potassium 4.4 mmol/L (3.3-5.1); Sodium 140 mmol/L (135-145); Total Protein 7.6 g/dL (6.5-8.0); Triglycerides 132 mg/dL
[2023-04-08 11:32] LABS: Vitamin D 25-OH Total 17.8 ng/mL (>30)
== END 2023-04-08 10:07 | disposition home or self-care (01) ==
LOC: HO.LAB 10:06
PROVIDERS: PCP Internal Medicine; Visit Provider Internal Medicine
DX: E55.9 Vitamin D deficiency, unspecified (principal); E78.5 Hyperlipidemia, unspecified
CPT/HCPCS: 36415; 80053; 80061; 82306

== ENCOUNTER 2023-06-02 10:14 | Emergency (ER) | payer OTHER, SELFPAY ==
[2023-06-02 10:22] VITALS: BP 123/57; PULSE 67; RESP 18; TEMP 35.6; O2SAT 98; BMI 28.5
--- NOTE | 2023-06-02 12:31 | ED_ITS ---
HPI - Extremity Problem General Chief complaint: Extremity Problem Stated complaint: back and shoulder pain Time Seen by Provider: 06/02/23 11:04 Source: patient, family, RN notes reviewed and old records reviewed Mode of arrival: ambulatory History of Present Illness HPI Narrative: 53-year-old female with past medical history of HLD, psoriasis, osteoarthritis, presenting to the ED complaining of bilateral neck/shoulder and upper back pain x 2 days. Denies known injury/trauma or fall, however patient reports she is a [employer] so does heavy lifting at work. Reports pain radiates to head and down RLE. Denies numbness, tingling, weakness, vision change/loss, urinary incontinence/retention, abdominal pain, hematuria. Denies taking anything for pain. MD Complaint: extremity pain Onset (ago): day(s) Related Data Previous Rx's Medication Instructions Recorded cholecalciferol (vitamin D3) 25 25 mcg PO DAILY 90 days #90 caps 04/09/23 mcg (1,000 unit) capsule pravastatin 40 mg tablet 40 mg PO BEDTIME 90 days #90 tabs 04/09/23 Allergies Allergy/AdvReac Type Severity Reaction Status Date / Time adalimumab [Humira] Allergy Intermediate psoriasis Verified 04/09/23 10:46 worsened atorvastatin Allergy Intermediate dizziness Verified 04/09/23 10:46 Penicillins [PENICILLINS] Allergy Intermediate DIZZINESS, Verified 04/09/23 10:46 rash rosuvastatin AdvReac Intermediate diarrhea, Verified 04/09/23 10:46 dizziness Review of Systems Review of Systems: Constitutional: No Fever, No Chills ENT/Mouth: No Ear Pain, No Nasal Congestion, No sore throat, No Rhinorrhea, No Swallowing Difficulty Cardiovascular: No Chest Pain, No SOB Respiratory: No Cough, No Sputum, No Wheezing Gastrointestinal: No Nausea, No Vomiting, No Abdominal pain Genitourinary: No Dysuria, No Urinary Frequency, No Urinary Incontinence/retention,No Flank Pain Musculoskeletal: +joint pain, + Myalgias, No Joint Swelling Skin: No Skin Lesions, No rash Neuro: No Weakness, No Numbness, No Paresthesias Yes all other systems are reviewed and are negative Constitutional: Constitutional: Reports as per HPI [facility] Past Medical History Attestation statement: The following information was validated with the patient. Source: old records reviewed Medical History Dyslipidemia Pain of right heel Psoriasis Right leg pain Surgical History No pertinent past surgical history Family History Family History Father Hypertension Stroke Mother Hypertension Son In good health Son In good health Son In good health Brother In good health Brother In good health Brother In good health Brother In good health Brother In good health Social History Social History Housing: House Alcohol intake: current Alcohol intake frequency: holidays/special occasions only Alcohol type: beer Patient Tobacco Use Status: Current everyday Tobacco user Tobacco use type: Cigarette Cigarettes Per Day: 10 e-Cigarette/Vaping Use: Never Used Second Hand Smoke Exposure: No Advance Directives: No Advance Directives Information Provided: No service: No Current occupational status: employed Current occupational exposures/hazards: No Cognitive needs: No Hearing needs: No Vision needs: No Physical Exam Vital Signs: Vital Signs: Last Vital Signs Temp 96.0 F L 06/02/23 10:22 Pulse 67 06/02/23 10:22 Resp 18 06/02/23 10:22 BP 123/57 L 06/02/23 10:22 Pulse Ox 98 06/02/23 10:22 O2 Del Method Room Air 06/02/23 10:22 BMI result Body Mass Index 28.5 Const: General: cooperative, healthy appearing, no acute distress, alert and awake Orientation/consciousness: patient oriented x3 Limitations: no limitations HEENT: Head: Yes normal to inspection and Yes atraumatic Ears: hearing grossly normal bilaterally, external ears normal, TM's normal bilaterally and mastoids normal General nose exam: Normal external nose present Face and sinus: Yes normal facial exam Eyes: General: appearance normal, both eyes and all related structures EOM: EOMs intact bilaterally Neck: Other: No midline cervical spinous tenderness. Bilateral trapezius/paraspinal cervical tenderness to palpation Neck: Yes normal visual inspection, Yes no meningeal signs, No anterior neck swelling and No torticollis Chest: Chest palpation & inspection: normal inspection of the chest, no crepitus and tenderness (Right anterior upper chest wall) Resp: Effort & Inspection: normal respiratory effort and no respiratory distress Auscultation: clear to auscultation bilaterally Cardio: Rate: regular rate Heart sounds: S1 normal heart sound present and S2 normal heart sound present Peripheral pulses: Peripheral pulses 2+ throughout GI: Inspection: Yes normal to inspection Palpation (GI): Soft to palpation and nontender Back/Spine/Pelvis: Other: No midline cervical/thoracic/lumbar spinous tenderness/step-off or deformity. + bilateral upper thoracic paraspinal/MSK tenderness to palpation reproducing subjective complaint Skin: Rashes: no rashes Wounds: no wounds Neuro: Other: Strength intact throughout. No saddle anesthesia. Sensation intact to light touch. Neurovascular intact distally General: patient oriented x3, gait normal, tone normal, moves all extremities, no meningeal signs and no focal motor deficits Cranial nerves: Yes CN's II- XII intact bilaterally Gait exam (Neuro): Normal gait present Extrem: Other: Right shoulder without noted deformity. Mild diffuse tenderness, ROM intact with some discomfort General: Yes normal to inspection Medications Administered Discontinued Medications Generic Name Dose Route Start Last Admin Trade Name Fransiscoq PRN Reason Stop Dose Admin Cyclobenzaprine HCl 5 mg 06/02/23 12:03 06/02/23 12:45 Cyclobenzaprine Hcl 5 Mg Tablet PO 06/02/23 12:04 5 mg ONCE ONE Administration Ketorolac Tromethamine 30 mg 06/02/23 12:03 06/02/23 12:48 Ketorolac Tromethamine 30 Mg/Ml Vial IM 06/02/23 12:04 30 mg ONCE ONE Administration Lidocaine 1 patch 06/02/23 12:03 06/02/23 12:45 Lidocaine 4 % Patch Adh..Patch TRANSDERMA 06/02/23 12:04 1 patch ONCE ONE Administration Protocol Medical Decision Making Medical Decision Making MDM Narrative: 53-year-old female with past medical history of HLD, psoriasis, osteoarthritis, presenting to the ED complaining of bilateral neck/shoulder and upper back pain x 2 days. On exam vital signs stable, NAD, nontoxic appearing, physical exam as noted above, no midline spinous tenderness throughout, neurovascularly intact, no red flag symptoms, a building with steady gait. Concern for MSK pain vs arthritis. Low suspicion for fractures, cervical dissection, cauda equina, ACS/PE Plan: EKG, pain control, PCP follow-up Please refer to course for remaining clinical decision making, interpretation of labs/imaging results, and discussions with consultants and/or family members. Differential Diagnosis Differential Diagnoses: The differential diagnosis associated with the presentation includes As above Independent Interpretation I performed an independent interpretation of an: EKG (EKG normal sinus rhythm at a rate of 60. Low-voltage QRS. QTC 408. No STEMI) Radiology Impression Discussion of test interpretation with radiology: I have reviewed the radiologist's reading. External Record Review External record reviewed: Inpatient record, Office record, Outpatient record, Prior outpatient labs, Prior outpatient radiology, Primary care record and Outside ED record Tests considered The following testing was considered but not selected: As above Prescription Management I considered prescription management with: Pain Medication Discharge Plan Discharge Clinical Impression: Musculoskeletal pain Patient Disposition: Home, Self-Care Instructions: Musculoskeletal Pain (ED) Additional Instructions: Your pain is likely musculoskeletal Flexeril is a muscle relaxer, take at night as it makes you drowsy, do not drive, drink alcohol, or operate machinery while taking it Naproxen as an anti-inflammatory / pain medication, take with food Lidoderm patches are numbing patches, apply to painful area In addition take Tylenol at home If symptoms persist or worsen, pain becomes unbearable, you developed urinary retention or incontinence, or weakness return to the ED Es probable que castelan dolor sea musculoesquel?moni Flexeril es un relajante muscular, t?avelina por la noche ya que te adormece, no conduzcas, bebas alcohol ni operes maquinaria mientras lo treva. Naproxeno diana medicamento antiinflamatorio/analg?sico, t?vieira con alimentos Los parches de Lidoderm son parches anest?sicos, se aplican en el ?barrett dolorida Adem?s collin Tylenol en casa Si los s?ntomas persisten o empeoran, el dolor se vuelve insoportable, desarroll? retenci?n urinaria o incontinencia, o debilidad, regrese al servicio de urgencias. Prescriptions: No Action cholecalciferol (vitamin D3) 25 mcg (1,000 unit) capsule 25 mcg PO DAILY 90 Days Qty: 90 1RF pravastatin 40 mg tablet 40 mg PO BEDTIME 90 Days Qty: 90 1RF [place] [facility] [place] [facility] [Provider Group] Ly Mendoza MD [Primary Care Provider] - 1 week Interventions: ED Discharge Assessment Last Done: 06/02/23 13:12 Print Language: Sami
--- NOTE | 2023-06-02 12:32 | ECG_ITS ---
Test Reason : L SHOULDER PAIN Blood Pressure : / mmHG Vent. Rate : 060 BPM Atrial Rate : 060 BPM P-R Int : 190 ms QRS Dur : 066 ms QT Int : 408 ms P-R-T Axes : 050 048 022 degrees QTc Int : 408 ms Normal sinus rhythm Low voltage QRS Septal infarct (cited on or before 08-MAY-2021) Abnormal ECG When compared with ECG of 08-MAY-2021 13:13, No significant change was found Referred By: Ana Miles Electronically Signed By:ARIE POE
[2023-06-02] MEDS: Cyclobenzaprine HCl 5 MG TABLET PO (12:45)
[2023-06-02] MEDS: Lidocaine 4 % Patch ADH..PATCH 1 PATCH TRANSDERMA (12:45)
[2023-06-02] MEDS: Ketorolac Tromethamine 30 MG/ML VIAL IM (12:48)
== END 2023-06-02 13:31 | disposition home or self-care (01) ==
PROVIDERS: Emergency Provider Emergency Medicine; PCP Internal Medicine
DX: M79.18 Myalgia, other site (principal); E78.5 Hyperlipidemia, unspecified; Z79.899 Other long term (current) drug therapy
CPT/HCPCS: 93005; 96372; 99283; 99284; J1885

== ENCOUNTER → 2023-06-02 12:32 | Outpatient (BNV) | payer OTHER, SELFPAY | PROVIDERS: Emergency Provider Emergency Medicine; PCP Internal Medicine; Visit Provider Internal Medicine | DX: R94.31 Abnormal electrocardiogram [ECG] [EKG] (principal) | CPT/HCPCS: 93010 ==

== ENCOUNTER 2023-12-18 11:13 | Outpatient (REF) | payer OTHER, SELFPAY ==
--- NOTE | ~2023-12-18 | MM_ITS ---
EXAMINATION: MM SCREENING DIGITAL BREAST TOMOSYNTHESIS, BILATERAL CLINICAL INFORMATION: Screening. Asymptomatic. COMPARISON: Mammography: This study is compared with prior exams dating back to 2019. TECHNIQUE: Digital breast tomosynthesis is performed in both the craniocaudal and mediolateral oblique views along with computer-aided detection (CAD). Synthesized 2D images are generated from the tomosynthesis. FINDINGS: The breasts are heterogeneously dense, which may obscure small masses (ACR BI-RADS breast composition Category c). There are no significant masses, abnormal calcifications, or other abnormalities. There is a coarse calcification in the upper outer quadrant of the right breast representing a benign involuting fibroadenoma. There is also a benign, unchanged mass in the upper-outer quadrant of the right breast. MM/MM tomosynthesis screening BI IMPRESSION: No mammographic evidence of malignancy. ASSESSMENT: BI-RADS BI-RADS 2 - Benign Findings RECOMMENDATION: Routine annual mammography screening. 1 year F/U This examination should not preclude the clinical evaluation of a suspicious palpable abnormality. This patient's information was entered into a reminder system with a target due date for their next mammogram.
== END 2023-12-18 11:14 | disposition home or self-care (01) ==
LOC: HO.MAMMO 11:13
PROVIDERS: PCP Internal Medicine; Visit Provider Internal Medicine
DX: Z12.31 Encounter for screening mammogram for malignant neoplasm of breast (principal)
CPT/HCPCS: 77063; 77067

== ENCOUNTER → 2023-12-18 11:30 | Outpatient (BNV) | payer OTHER, SELFPAY | PROVIDERS: PCP Internal Medicine; Visit Provider Radiology Diagnostic Radiology | DX: Z12.31 Encounter for screening mammogram for malignant neoplasm of breast (principal) | CPT/HCPCS: 77063; 77067 ==

== ENCOUNTER 2024-07-14 16:11 | Emergency (ER) | payer OTHER, SELFPAY ==
--- NOTE | ~2024-07-14 | XR_ITS ---
EXAMINATION: XR ANKLE, RIGHT CLINICAL INFORMATION: Trauma. COMPARISON: None available. TECHNIQUE: AP, lateral, and mortise views of the right ankle. FINDINGS: No fracture. No dislocation. Chronic corticated osseous density measuring about 6 mm inferior to the medial malleolus. Ankle mortise is congruent. No soft tissue abnormality. XR/XR ankle RT min 3V IMPRESSION: 1. No acute fracture or dislocation. Electronically signed by: Milo Song MD 07/14/2024 06:07 PM EDT
[2024-07-14 16:24] VITALS: BP 117/69; PULSE 76; RESP 16; TEMP 36.4; O2SAT 98; BMI 27.4
--- NOTE | 2024-07-14 16:37 | ED_ITS ---
HPI - General Adult General Chief complaint: Extremity Injury, Lower Stated complaint: foot pain Time Seen by Provider: 07/14/24 16:27 Source: patient and single corner cutter (all interactions with this patient were facilitated with an [facility] finishing supervisor) Mode of arrival: ambulatory Limitations: language barrier (all interactions with this patient were facilitated with an [facility] finishing supervisor) History of Present Illness ED Provider: Sugey Holguin PA-C HPI narrative: Patient is a 54 year old assigned female at with a history of psoriasis, dyslipidemia, and OA presenting to the emergency department today with right ankle and foot pain. Patient states that when she puts pressure on the bottom of her right foot, pain shoots into her ankle and down her toes. Patient denies any dizziness, lightheadedness, abdominal pain, nausea, vomiting, fever, chills, blurry vision, double vision, loss of vision, chest pain, difficulty breathing, shortness of breath, back pain, night sweats, pain with urination, increased urinary frequency, increased urinary urgency, blood in her urine or stool, syncope or a near syncopal episode, recent trauma or falls, bowel incontinence, bladder incontinence, or any other complaints at this time. Onset (ago): day(s) Location: right and lower extremity Relieving factors: none Exacerbating factors: none Associated symptoms: denies other symptoms Treatments prior to arrival: none Related Data Previous Rx's ?Medication ?Instructions ?Recorded cholecalciferol (vitamin D3) 25 25 mcg PO DAILY 90 days #90 caps 04/09/23 mcg (1,000 unit) capsule pravastatin 40 mg tablet 40 mg PO BEDTIME 90 days #90 tabs 04/09/23 acetaminophen 500 mg tablet 500 mg PO Q6H PRN fever or pain 06/02/23 (Tylenol Extra Strength) #14 tabs cyclobenzaprine 5 mg tablet 5 mg PO Q8H PRN pain (scale score 06/02/23 7-10) 5 days #14 tabs lidocaine 5 % topical patch 1 patch topical DAILY PRN pain #30 06/02/23 (Lidoderm) ea naproxen 500 mg tablet 500 mg PO BID PRN pain 10 days #20 06/02/23 tabs Allergies Allergy/AdvReac Type Severity Reaction Status Date / Time adalimumab [Humira] Allergy Intermediate psoriasis Verified 07/14/24 16:26 worsened atorvastatin Allergy Intermediate dizziness Verified 07/14/24 16:26 Penicillins [PENICILLINS] Allergy Intermediate DIZZINESS, Verified 07/14/24 16:26 rash rosuvastatin AdvReac Intermediate diarrhea, Verified 07/14/24 16:26 dizziness Review of Systems Constitutional: Constitutional: Reports no additional constitutional complaints, Denies chills, Denies fever(s) and Denies night sweats Eyes: Eyes: Reports no additional eye complaints, Denies blurry vision, Denies change in vision, Denies diplopia, Denies eye discharge, Denies loss of vision and Denies eye pain ENT: Denies dizziness Cardiovascular: Cardiovascular: Reports no additional cardiovascular complaints, Denies chest pain, Denies lightheadedness, Denies Loss of Consciousness and Denies dyspnea Respiratory: Respiratory: Reports no additional respiratory complaints and Denies dyspnea Gastrointestinal: Gastrointestinal: Reports no additional gastrointestinal complaints, Denies abdominal pain, Denies melena, Denies hematochezia, Denies change in bowel habits and Denies change in stool character Genitourinary: Genitourinary: Denies hematuria, Denies urinary frequency, Denies dysuria, Denies urinary incontinence, Denies urinary hesitancy and Denies urinary urgency Musculoskeletal: Musculoskeletal: Reports no additional musculoskeletal complaints, Denies numbness and Denies tingling Comments: rihgt foot pain Neurologic: Denies dizziness, Denies loss of vision, Denies numbness and Denies tingling Psychiatric: Psychiatric: Reports no additional psychiatric complaints Endocrine: Endocrine: Reports no additional endocrine complaints Hematologic/Lymphatic: Hematologic/Lymphatic: Reports no additional hematologic/lymphatic complaints Allergic/Immunologic: Allergic/Immunologic: Reports no additional allergic/immunologic complaints [facility] Past Medical History Attestation statement: The following information was validated with the patient. Source: old records reviewed and nursing notes reviewed Medical History Pain of right heel Right leg pain Dyslipidemia Psoriasis Surgical History No pertinent past surgical history Family History Family History Father Hypertension Stroke Mother Hypertension Son In good health Son In good health Son In good health Brother In good health Brother In good health Brother In good health Brother In good health Brother In good health Social History Social History Housing: House Alcohol intake: current Alcohol intake frequency: holidays/special occasions only Alcohol type: beer Patient Tobacco Use Status: Current everyday Tobacco user Tobacco use type: Cigarette Cigarettes Per Day: 10 e-Cigarette/Vaping Use: Never Used Second Hand Smoke Exposure: No Advance Directives: No Advance Directives Information Provided: No Do you have a plan to hurt others: No Plan service: No Current occupational status: employed Current occupational exposures/hazards: No Cognitive needs: No Hearing needs: No Vision needs: No Physical Exam ED Vital Signs: Vital Signs - 24 hr 07/14/24 16:24 07/14/24 18:47 Temperature 97.6 F 97.8 F Pulse Rate 76 75 Respiratory Rate 16 18 Blood Pressure 117/69 122/73 Pulse Oximetry 98 99 Oxygen Delivery Method Room Air Room Air BMI result Body Mass Index 27.4 Const General: cooperative, no acute distress, alert and awake Nutritional Appearance: well nourished Orientation/consciousness: patient oriented x3 Limitations: no limitations HENMT Head: Yes normal to inspection and Yes atraumatic Ears: hearing grossly normal bilaterally and external ears normal General nose exam: Normal external nose present, no nasal discharge noted and no epistaxis Face and sinus: Yes normal facial exam, No abrasion and No laceration Mouth: Normal oral and palatal mucosa present, no drooling and no muffled voice Eyes General: appearance normal, both eyes and all related structures Periorbital: periorbital findings normal Eyelids: Yes eyelids normal Conjunctivae: conjunctivae normal Pupils: Equal, round and reactive pupils present EOM: EOMs intact bilaterally Neck Neck: Yes normal visual inspection, Yes full ROM and Yes no lymphadenopathy Chest Chest palpation & inspection: normal inspection of the chest Resp Effort & Inspection: normal respiratory effort and able to speak in complete sentences GI Inspection: Yes normal to inspection Neuro General: patient oriented x3 and moves all extremities Cranial nerves: Yes Equal, round and reactive pupils present Cognition (Neuro): normal cognition Extrem General: Yes normal to inspection, Yes full ROM and Yes capillary refill normal Psych Appearance: grossly normal Mental Status: mental status grossly normal Affect: normal affect Attitude: cooperative Thought process: Normal thought process present Thought content: Normal thought content present Insight: Good insight present (Psych) Course Course Course Narrative: This is an RME done by AMRIT Pichardo: Additional HPI, ROS, PE not included below will be deferred to primary provider. 54 year old female presents w/ right ankle pain and swelling X 1 day. Reports atraumatic in nature. Tells me a long time ago she had a fx to that ankle. PE- swelling to right ankle. 2+ DP,AT,PT equal and b/l. NOrmal distal sensaiton Medications Administered Discontinued Medications Generic Name Dose Route Start Last Admin Trade Name Sahara PRN Reason Stop Dose Admin Ketorolac Tromethamine 15 mg 07/14/24 18:26 07/14/24 18:42 Ketorolac Tromethamine 15 Mg/Ml Vial IM 07/14/24 18:27 15 mg ONCE ONE Administration Procedures Orthopedic Splinting/Casting Injury #1: Side: right Lower Extremity Injury Location: foot Lower Extremity Immobilizer: boot orthosis Medical Decision Making Medical Decision Making MDM Narrative: Patient is a 54 year old assigned female at with a history of psoriasis, dyslipidemia, and OA presenting to the emergency department today with right foot and ankle pain. Patient's physical exam was unremarkable. Patient's right ankle x-ray showed no acute process. I explained my physical exam findings as well as all test results to the patient. I answered all questions asked by the patient. Patient's clinical presentation is most consistent with plantar fasciitis. Patient's right foot was placed in a walking boot, without incident. Patient's PMS was intact prior to and after boot placement. I stressed the importance of the patient taking her medication as directed (either prescribed or as the over the counter packaging recommends). I stressed the importance of the patient following up with her primary care provider. I stressed the importance of the patient returning to the emergency department immediately if her symptoms were to worsen or if she were to develop any dizziness, shortness of breath, difficulty breathing, chest pain, blurry vision, loss of vision, nausea, vomiting, abdominal pain, fever, chills, back pain, or any other complaints. Patient verbalized agreement and understanding with this treatment plan and discharge. Differential Diagnosis Differential Diagnoses: The differential diagnosis associated with the presentation includes Plantar fasciitis Admission/Observation Consideration of admission/observation: Escalation of care including admission/observation considered Patient would have been admitted to the hospital had her work up had any findings where hospital admission was appropriate and her clinical presentation warranted hospital admission. Independent Interpretation I performed an independent interpretation of an: Plain X-Ray Interpretation: My interpretation is in agreement with the radiologist's impression of this imaging study. EXAMINATION: XR ANKLE, RIGHT CLINICAL INFORMATION: Trauma. COMPARISON: None available. TECHNIQUE: AP, lateral, and mortise views of the right ankle. FINDINGS: No fracture. No dislocation. Chronic corticated osseous density measuring about 6 mm inferior to the medial malleolus. Ankle mortise is congruent. No soft tissue abnormality. XR/XR ankle RT min 3V IMPRESSION: 1. No acute fracture or dislocation. Electronically signed by: Milo Song MD 07/14/2024 06:07 PM EDT RP Dictated By: Milo Song MD Signed By: Electronically signed by Milo Song MD 07/14/24 [id number] Radiology Impression Discussion of test interpretation with radiology: I have reviewed the radiologist's reading. Discharge Plan Discharge Clinical Impression: Plantar fasciitis Patient Disposition: Home, Self-Care Instructions: Plantar Fasciitis (ED), Plantar Fasciitis Exercises (ED) Additional Instructions: Follow up with your primary care provider. Return to the emergency department immediately if your symptoms worsen or if you develop any dizziness, shortness of breath, difficulty breathing, chest pain, blurry vision, loss of vision, nausea, vomiting, abdominal pain, fever, chills, back pain, or any other complaints. Amanda?seguimiento?con castelan m?dico de atenci?n primaria. Acuda inmediatamente al servicio de urgencias si viky s?ntomas empeoran o si presenta falta de aliento, dificultad para respirar, dolor tor?cico, mareos, aturdimiento, dolor de espalda, dolor abdominal, fiebre, escalofr?os o cualquier otro s?ntoma. Prescriptions: No Action acetaminophen [Tylenol Extra Strength] 500 mg tablet 500 mg PO Q6H PRN (Reason: fever or pain) Qty: 14 0RF lidocaine [Lidoderm] 5 % adhesive patch,medicated 1 patch topical DAILY MDD remove after 12 hours PRN (Reason: pain) Qty: 30 0RF Rx Instructions: leave on most painful area for up to 12 hrs naproxen 500 mg tablet 500 mg PO BID PRN (Reason: pain) 10 Days Qty: 20 0RF cyclobenzaprine 5 mg tablet 5 mg PO Q8H PRN (Reason: pain (scale score 7-10)) 5 Days Qty: 14 0RF cholecalciferol (vitamin D3) 25 mcg (1,000 unit) capsule 25 mcg PO DAILY 90 Days Qty: 90 1RF pravastatin 40 mg tablet 40 mg PO BEDTIME 90 Days Qty: 90 1RF Referrals: Ly Mendoza MD [Primary Care Provider] - Interventions: ED Discharge Assessment Last Done: 07/14/24 18:47 Discharge Date/Time: 07/14/24 18:48 Print Language: Monegasque
[2024-07-14] MEDS: Ketorolac Tromethamine 15 MG/ML VIAL IM (18:42)
[2024-07-14 18:47] VITALS: BP 122/73; PULSE 75; RESP 18; TEMP 36.6; O2SAT 99
== END 2024-07-14 18:48 | disposition home or self-care (01) ==
PROVIDERS: Emergency Provider Emergency Medicine; PCP Internal Medicine
DX: M72.2 Plantar fascial fibromatosis (principal); E78.5 Hyperlipidemia, unspecified; M79.671 Pain in right foot; L40.9 Psoriasis, unspecified
CPT/HCPCS: 73610; 96372; 99284; J1885

== ENCOUNTER 2025-01-03 08:06 | Outpatient (REF) | payer OTHER, SELFPAY ==
[2025-01-03 09:46] LABS: Alanine Aminotransferase 23 U/L (0-31); Albumin Level 3.9 g/dL (3.5-5.0); Alkaline Phosphatase 98 U/L (39-117); Anion Gap 12 (12-20); Aspartate Amino Transferase 17 U/L (5-31); Bilirubin Total 0.3 mg/dL (0.0-1.0); Blood Urea Nitrogen 19 mg/dL (9-16); Calcium 8.9 mg/dL (8.4-10.2); Carbon Dioxide 24 mmol/L (22-29); Chloride 109 mmol/L (96-108); Cholesterol 223 mg/dL (<200); Estimated Glomerular Filt Rate > 60; Glucose Fasting 95 mg/dL (60-99); HDL Cholesterol 50 mg/dL (>40); LDL Cholesterol Calculated 151 mg/dL (<100); Potassium 4.2 mmol/L (3.3-5.1); Sodium 141 mmol/L (135-145); Triglycerides 113 mg/dL (<150)
[2025-01-03 09:50] LABS: Vitamin D 25-OH Total 11.7 ng/mL (>30)
== END 2025-01-03 08:07 | disposition home or self-care (01) ==
LOC: HO.LAB 08:06
PROVIDERS: PCP Internal Medicine; Visit Provider Internal Medicine
DX: E78.5 Hyperlipidemia, unspecified (principal); E55.9 Vitamin D deficiency, unspecified
CPT/HCPCS: 36415; 80053; 80061; 82306

== ENCOUNTER 2025-01-04 16:36 | Outpatient (AMB) | payer OTHER, SELFPAY ==
--- NOTE | 2025-01-04 16:42 | MHC.PC.OV ---
Vital Signs 01/04/25 16:43 Height 5 ft 6 in Weight 175 lb BMI 28.2 BP 130/72 Blood Pressure Location Lt brachial Position Sitting Intake Visit Reasons: Annual Physical appt Intake Note: patient here for an annual physical exam Rotary Dump Operator Required: Yes Rotary Dump Operator Language: Human Resources Training Manager Name: Ly Escalona MD Information Interpreted: non-clinical & clinical Accompanied by: Self / Same As Patient Allergies adalimumab [Humira] Allergy (Intermediate, Verified 01/04/25 16:54) psoriasis worsened atorvastatin Allergy (Intermediate, Verified 01/04/25 16:54) dizziness Penicillins [PENICILLINS] Allergy (Intermediate, Verified 01/04/25 16:54) DIZZINESS, rash rosuvastatin Adverse Reaction (Intermediate, Verified 01/04/25 16:54) diarrhea, dizziness Medication List - Last Reconciled 01/04/25 by Ly Escalona MD acetaminophen (Tylenol Extra Strength) 500 mg PO Q6H PRN cholecalciferol (vitamin D3) 25 mcg PO DAILY 90 days pravastatin 40 mg PO BEDTIME 90 days Tobacco use date assessed: 01/04/25 Dental Screening Dental Screen Date: 01/04/25 Did you have a dental visit in the last 12 months?: Yes Did you have a dental problem in the last 6 months where you did not have access to dental care?: No Was dental information given to patient?: Patient has dentist HPI HPI Comments History of Present Illness Details The patient is a 54-year-old female presenting for an annual physical examination. She has a history of psoriasis, characterized by recurrent lesions predominantly influencing the groin and axilla, with episodes of intense itching and periodic flare-ups. Dermatological follow-ups have been inconsistent, and it has been over two years since prescribed treatment regimens were pursued. Regarding her elevated cholesterol, the patient noted prior treatment with statins such as atorvastatin, which was discontinued due to side effects. As a smoker consuming approximately half a pack per day, her cardiovascular risk assessment was reevaluated to 4.3% based on current habits. The patient also discussed a positivity for fecal occult blood testing in 2021, with plans to follow up for colonoscopy underscored by previous inconclusive home test results. - Tetanus vaccination status confirmed as current. - Mammography recommended and pending completion due to previous screening over one year ago. - Advised repeat colonoscopy for positive fecal occult blood test. - Smoking cessation discussion with quantified cardiovascular risk assessment provided (4.3% risk with smoking continuation). - Discussed the need for adherence to antihyperlipidemic treatment considering current smoking status. [facility] Medical History Pain of right heel Right leg pain Dyslipidemia Psoriasis Surgical History No pertinent past surgical history Family History Father Hypertension Stroke Mother Hypertension Son In good health Son In good health Son In good health Brother In good health Brother In good health Brother In good health Brother In good health Brother In good health Social History Housing: House Alcohol intake: current Alcohol intake frequency: holidays/special occasions only Alcohol type: beer Patient Tobacco Use Status: Current everyday Tobacco user Tobacco use type: Cigarette Cigarettes Per Day: 10 e-Cigarette/Vaping Use: Never Used Second Hand Smoke Exposure: No service: No Current occupational status: employed Current occupational exposures/hazards: No Cognitive needs: No Hearing needs: No Vision needs: No Questionnaire PHQ-9 Over the last 2 weeks, how often have you been bothered by any of the following problems? 1. Little interest or pleasure in doing things: not at all 2. Feeling down, depressed, or hopeless: not at all 3. Trouble falling or staying asleep, or sleeping too much: not at all 4. Feeling tired or having little energy: not at all 5. Poor appetite or overeating: not at all 6. Feeling bad about yourself - or that you are a failure or have let yourself or your family down: not at all 7. Trouble concentrating on things, such as reading the newspaper or watching television: not at all 8. Moving or speaking so slowly that other people could have noticed. Or the opposite - being so fidgety or restless that you have been moving around a lot more than usual: not at all 9. Thoughts that you would be better off or of hurting yourself in some way: not at all Total score: 0 Depression Screening Interpretation: Negative Depression Screening Done: Yes 31077 - PHQ-9 Billing: Yes Source: Developed by Drs. Bryson Rodriguez, Mary Song, Felipe Crystal and colleagues, with an educational lucila from [email or web address]. Thrive Questionnaire Date Thrive assessed: 01/04/25 I am a: Patient What is your living situation today?: I choose not to answer this question Within the past 12 months, did the food you bought not last and you didn't have the money to get more?: I choose not to answer this question Within the past 12 months, did you worry whether your food would run out before you got money to buy more?: I choose not to answer this question Do you have trouble paying for medicines?: I choose not to answer this question Do you have trouble getting transportation to medical appointments?: I choose not to answer this question Do you have trouble paying your heating and electricity bill?: I choose not to answer this question Do you have trouble taking care of your child, family member or friend?: I choose not to answer this question Do you have trouble with day-to-day activities such as bathing, preparing meals, shopping, managing finances, etc.?: I choose not to answer this question Are you currently unemployed and looking for a job?: I choose not to answer this question Are you interested in more education?: I choose not to answer this question Please select the resources that you would like help with: Education Currently or been in a relationship where the following occur: I choose not to answer THRIVE Score: 0 AUDIT C Alcohol Use Questionnaire (AUDIT-C) 1. How often do you have a drink containing alcohol?: Monthly or less 2. How many drinks containing alcohol do you have on a typical day when you are drinking?: 1 or 2 3. How often do you have six or more drinks on one occasion?: Never Total Score: 1 Score Reviewed/Action Taken: No RAJ-7 AMB Questionnaire RAJ-7 Date RAJ - 7 assessed: 01/04/25 Feeling nervous, anxious, or on edge: 0 = Not at all Not being able to stop or control worryin = Not at all Worrying too much about different things: 0 = Not at all Trouble relaxin = Not at all Being so restless that it is hard to sit still: 0 = Not at all Becoming easily annoyed or irritable: 0 = Not at all Feeling afraid as if something awful might happen: 0 = Not at all Total RAJ-7 score (0-4 normal; 5-9 mild; 10-14 moderate; 15-21 severe): 0 Source: Developed by Drs. Bryson Rodriguez, Mary Song, Felipe Crystal and colleagues, with an educational lucila from [email or web address]. RAJ-7 Assessment Billing RAJ-7 Assessment Tool: RAJ-7 Assessment 62932 Review of Systems Const All systems reviewed & are unremarkable except as noted in HPI and below Card Denies chest pain at rest, Denies chest pain with activity, Denies edema, Denies irregular heart rhythm, Denies claudication, Denies dyspnea, Denies dyspnea on exertion, Denies orthopnea, Denies paroxysmal nocturnal dyspnea and Denies slow heart rate Resp Denies cough, Denies dyspnea and Denies dyspnea on exertion GI Denies abdominal pain, Denies change in bowel habits, Denies excessive flatus, Denies nausea and Denies vomiting Skin/Breast Reports lesions Physical exam (Primary Care) Vital Signs: Last Vital Signs BP 130/72 01/04/25 16:43 BMI result Body Mass Index 28.2 Tobacco/Smoking Status: Tobacco use Status Tobacco use date assessed 01/04/25 01/04/25 16:51 Patient Tobacco Use Status Current everyday Tobacco 01/04/25 16:51 Tobacco use type Cigarette 01/04/25 16:51 e-Cigarette/Vaping Use Never Used 01/04/25 16:51 PHQ-9: PHQ-9 Score PHQ-9: Total score 0 01/04/25 16:54 Depression Screening Interpretation: Negative Thrive Assessment: Date of Thrive Assessment Date Thrive assessed 01/04/25 01/04/25 16:51 Currently or been in a relationship where the following occur: I choose not to answer Eyes General: appearance normal, both eyes and all related structures Eyelids: Yes eyelids normal Conjunctivae: conjunctivae normal Neck Neck: Yes normal visual inspection and Yes supple Resp Effort & Inspection: normal respiratory effort Auscultation: clear to auscultation bilaterally Cardio Jugular venous distension: no JVD Rate: regular rate Rhythm: regular rhythm Heart sounds: S1 normal heart sound present and S2 normal heart sound present GI Inspection: Yes normal to inspection Palpation (GI): Soft to palpation and nontender Auscultation: normal bowel sounds Skin General skin exam: no rashes or lesions noted Neuro General: no focal motor deficits Extrem General: Yes full ROM Psych Appearance: grossly normal Coding Level of Care Code Est Pt Level 3 (83106) Est Pt Prev Care 40-64y(78112) Diagnoses Encounter for physical examination Z00.00 Abscess L02.91 Additional Codes RAJ-7 Assessment Billing - RAJ-7 Assessment Tool: RAJ-7 Assessment 42905 ([id number]) PHQ-9 - 66236 - PHQ-9 Billing: Yes ([id number]) Time Spent (min) 34 Assessment & Plan Assessment & Plan (1) Encounter for physical examination: Code(s): Z00.00 - Encounter for general adult medical examination without abnormal findings Category: Medical (2) Abscess: Code(s): L02.91 - Cutaneous abscess, unspecified Category: Medical Plan Referral for a colonoscopy is necessary following a previously positive fecal occult blood test but she declinesI have prescribed a topical steroid for psoriasis management and recommend dermatological follow-up to fully address skin concerns. Emphasis on smoking cessation persists due to an elevated cardiovascular risk; lifestyle counseling and potential statin therapy will be revisited upon smoking cessation efforts. Thyroid function tests are proposed to elucidate hair loss etiology, and management decisions will follow accordingly. Patient was informed and verbally consented to the use of an ambient scribe for clinic note documentation during this visit. During the visit, I reviewed the necessity for a colonoscopy following the positive fecal occult test as a precaution for possible colorectal pathology. I emphasized the benefits of completing this diagnostic despite her anxiety. We discussed the management of psoriasis with topical treatments and the referral to dermatology for follow-up care. I highlighted the cardiovascular risk associated with her continued smoking and importance of cessation. We discussed plans for thyroid function evaluation in consideration of alopecia. The potential benefits and risks of cholesterol management with a statin will be weighed in further visits, with a focus on her smoking reduction efforts. Orders: Referrals Cologuard Test Z12.11 - Encounter for screening for malignant neoplasm of colon, Z12.12 - Encounter for screening for malignant neoplasm of rectum Medications: New betamethasone valerate 0.1% 1 appl topical BID PRN 45 grams 0RF skin irritation 30 days doxycycline hyclate 100 mg PO BID 10 tabs 0RF 5 days L02.91 - Cutaneous abscess, unspecified Refilled acetaminophen (Tylenol Extra Strength) 500 mg PO Q6H PRN 14 tabs 0RF fever or pain cholecalciferol (vitamin D3) 25 mcg PO DAILY 90 caps 1RF 90 days Patient Instructions: - Schedule your colonoscopy for comprehensive evaluation. - Apply the prescribed topical cream to affected areas for psoriasis management. - Plan a follow-up with a data warehouse consultant for your skin condition. - Try to reduce or stop smoking to help lower cardiovascular risk. - Schedule thyroid function tests to investigate hair loss. - Keep track of your mammography appointment and ensure it is completed this year.
[2025-01-04 16:43] VITALS: BP 130/72; BMI 28.2
== END 2025-01-04 17:13 | disposition home or self-care (01) ==
PROVIDERS: PCP Internal Medicine; Visit Provider Internal Medicine
DX: Z00.00 Encounter for general adult medical examination without abnormal findings (principal); L02.91 Cutaneous abscess, unspecified

== ENCOUNTER → 2025-01-04 16:36 | Outpatient (BNVA) | payer OTHER, SELFPAY | PROVIDERS: PCP Internal Medicine; Visit Provider Internal Medicine | DX: Z00.00 Encounter for general adult medical examination without abnormal findings (principal); L02.91 Cutaneous abscess, unspecified | CPT/HCPCS: 96127; 99212; 99396 ==

== ENCOUNTER 2025-01-12 14:28 | Outpatient (REF) | payer OTHER, SELFPAY | END 2025-01-12 14:29 | disposition home or self-care (01) | LOC: HO.MAMMO 14:28 | PROVIDERS: PCP Internal Medicine; Visit Provider Internal Medicine | DX: Z12.31 Encounter for screening mammogram for malignant neoplasm of breast (principal) | CPT/HCPCS: 77063; 77067 ==

== ENCOUNTER → 2025-01-12 14:45 | Outpatient (BNV) | payer OTHER, SELFPAY | PROVIDERS: PCP Internal Medicine; Visit Provider Internal Medicine | DX: Z12.31 Encounter for screening mammogram for malignant neoplasm of breast (principal) | CPT/HCPCS: 77063; 77067 ==

== ENCOUNTER 2025-10-18 10:47 | Outpatient (AMB) | payer OTHER, SELFPAY ==
--- NOTE | 2025-10-18 10:57 | MHC.PC.OV ---
Vital Signs 10/18/25 10:58 Height 5 ft 6 in Weight 168 lb BMI 27.1 BP 122/56 L Blood Pressure Location Lt brachial Position Sitting Respiration 18 Pulse 81 Pulse Source Pulse Oximeter Temp 97.6 F Temp Source Temporal Artery Scan Pulse Oximetry (%) 98 Oxygen Delivery Method Room Air Intake Visit Reasons: Referral Request for Dermatology Natural History Collections Curator Required: Yes Natural History Collections Curator Name: Riddhi Accompanied by: Self / Same As Patient Allergies adalimumab (Humira) Allergy (Intermediate, Verified 10/18/25 10:57) psoriasis worsened atorvastatin Allergy (Intermediate, Verified 10/18/25 10:57) dizziness Penicillins (PENICILLINS) Allergy (Intermediate, Verified 10/18/25 10:57) DIZZINESS, rash rosuvastatin Adverse Reaction (Intermediate, Verified 10/18/25 10:57) diarrhea, dizziness Medication List - Last Reconciled 10/18/25 by Kiko House MD acetaminophen (Tylenol Extra Strength) 500 mg PO Q6H PRN doxycycline hyclate 100 mg PO BID 5 days pravastatin 40 mg PO BEDTIME 90 days Tobacco use date assessed: 10/12/25 Dental Screening Dental Screen Date: 10/12/25 HPI HPI Comments History of Present Illness Details The patient is a 55 year old female presenting with psoriasis. Her psoriasis affects both of her feet and hands. She has previously seen a automotive quality manager but it has been a long time since her last visit. She is currently using an unspecified cream for psoriasis. The patient also reports pain in her spine and neck, which radiates to her chest. Tylenol has not been effective for this pain. Her medication list includes Tylenol, doxycycline, and pravastatin. She was previously taking Vitamin D, which was stopped for an unknown reason. [facility] Medical History Pain of right heel Right leg pain Dyslipidemia Psoriasis Surgical History No pertinent past surgical history Family History Father Hypertension Stroke Mother Hypertension Son In good health Son In good health Son In good health Brother In good health Brother In good health Brother In good health Brother In good health Brother In good health Social History Housing: House Alcohol intake: current Alcohol intake frequency: holidays/special occasions only Alcohol type: beer Patient Tobacco Use Status: Current everyday Tobacco user Tobacco use type: Cigarette Cigarettes Per Day: 10 e-Cigarette/Vaping Use: Never Used Second Hand Smoke Exposure: No service: No Current occupational status: employed Current occupational exposures/hazards: No Cognitive needs: No Hearing needs: No Vision needs: No Questionnaire Thrive Questionnaire Date Thrive assessed: 01/04/25 I am a: Patient What is your living situation today?: I choose not to answer this question Within the past 12 months, did the food you bought not last and you didn't have the money to get more?: I choose not to answer this question Within the past 12 months, did you worry whether your food would run out before you got money to buy more?: I choose not to answer this question Do you have trouble paying for medicines?: I choose not to answer this question Do you have trouble getting transportation to medical appointments?: I choose not to answer this question Do you have trouble paying your heating and electricity bill?: I choose not to answer this question Do you have trouble taking care of your child, family member or friend?: I choose not to answer this question Do you have trouble with day-to-day activities such as bathing, preparing meals, shopping, managing finances, etc.?: I choose not to answer this question Are you currently unemployed and looking for a job?: I choose not to answer this question Are you interested in more education?: I choose not to answer this question Please select the resources that you would like help with: Education Currently or been in a relationship where the following occur: I choose not to answer THRIVE Score: 0 RAJ-7 AMB Questionnaire RAJ-7 Date RAJ - 7 assessed: 10/12/25 Source: Developed by Drs. Bryson Rodriguez, Mary Song, Felipe Crystal and colleagues, with an educational lucila from [employer]. Review of Systems Const Details: As per HPI. Physical exam (Primary Care) Vital Signs: Last Vital Signs Temp 97.6 F 10/18/25 10:58 Pulse 81 10/18/25 10:58 Resp 18 10/18/25 10:58 BP 122/56 L 12/16/25 10:58 Pulse Ox 98 10/18/25 10:58 Oxygen Delivery Method Room Air 10/18/25 10:58 BMI result Body Mass Index 27.1 Tobacco/Smoking Status: Tobacco use Status Tobacco use date assessed 10/12/25 10/18/25 11:00 Patient Tobacco Use Status Current everyday Tobacco 10/18/25 11:00 Tobacco use type Cigarette 10/18/25 11:00 e-Cigarette/Vaping Use Never Used 10/18/25 11:00 Thrive Assessment: Date of Thrive Assessment Date Thrive assessed 01/04/25 10/18/25 11:00 Currently or been in a relationship where the following occur: I choose not to answer Const Other: Pertinent findings are in BOLD GENERAL APPEARANCE NAD, activity normal for age, well developed/ well nourished, no cyanosis, pallor, or diaphoresis. EYES lids/conjunctiva normal. EARS/NOSE/THROAT Mucous membranes moist, nares normal, lips/teeth normal uvula midline without oral pharyngeal erythema, exudate or swelling TMs normal bilaterally. No lymphangitis/lymphedema. HEAD/NECK normocephalic atraumatic, no facial trauma, neck is supple. RESPIRATORY respiratory effort normal, speaks in full sentences, no tripod position, no accessory muscle use. Lungs clear to auscultation without rhonchi, wheezes, rales CARDIAC Regular rate and rhythm, no edema. ABDOMINAL Soft, ND/NT. No evidence of fluid wave. No pulsatile masses on exam, rebound tenderness, Alexis sign or pain over Mcburney's point. MUSCLES/EXTREMITIES No abnormal range of motion, no swelling. SKIN Warm, pink and dry. No rashes, dermatoses, petechiae or lesions. Palms and soles of feet with plaques and petechial rash. NEUROLOGICAL Speech is clear and appropriate. Normal level of consciousness. Gait and coordination are normal. 5/5 strength in all extremities. PSYCH Normal mood and affect. Judgement/competence is appropriate Coding Level of Care Code Est Pt Level 4 (84955) Diagnoses Psoriasis L40.9 Cervical osteoarthritis M47.812 Vitamin D deficiency E55.9 Time Spent (min) 30 Assessment & Plan Assessment & Plan (1) Psoriasis: Code(s): L40.9 - Psoriasis, unspecified Category: Medical Plan: - The patient presents with psoriasis on her bilateral feet and hands. - A prescription for calcipotriene cream will be provided, to be applied twice daily until she can see a automotive quality manager. - A referral to dermatology has been placed. (2) Cervical osteoarthritis: Code(s): M47.812 - Spondylosis without myelopathy or radiculopathy, cervical region Category: Medical Plan: - The patient reports spine and neck pain radiating to the chest, for which Tylenol has been ineffective. - A prescription for naproxen 375 mg twice daily will be provided. - The prescription will be for 20 tablets with three refills. (3) Vitamin D deficiency: Code(s): E55.9 - Vitamin D deficiency, unspecified Category: Medical Plan: - The patient requested a refill of her vitamin D. - A prescription for the same dose of vitamin D has been sent to the pharmacy. - The patient's pravastatin was also refilled. Plan I have provided the patient with a prescription for calcipotriene cream for her psoriasis, to be used twice daily until she is seen by a automotive quality manager. A referral to dermatology has been placed. For her spine and neck pain, I have prescribed naproxen 375 mg to be taken twice daily, providing 20 tablets with three refills. I also refilled her vitamin D and pravastatin prescriptions. I advised her to keep her follow-up appointment with Dr. Morgan, but she can schedule an appointment sooner with another doctor if needed. Orders: Referrals Dermatology Referral L40.9 - Psoriasis, unspecified Medications: New naproxen 375 mg PO BID PRN 20 tabs 3RF pain 30 days cholecalciferol (vitamin D3) 25 mcg PO DAILY 90 caps 3RF calcipotriene 0.005% rub in gently and completely 1 appl topical BID 60 grams 2RF Refilled pravastatin 40 mg PO BEDTIME 90 tabs 1RF 90 days
[2025-10-18 10:58] VITALS: BP 122/56; PULSE 81; RESP 18; TEMP 36.4; O2SAT 98; BMI 27.1
--- OUTSIDE RECORDS SUMMARY | 2025-10-18 13:51 | XMS_ITS | Encounter Summary ---
Author Organization [facility] Address [address] [place] [phone] Phone Care Team Providers Care Outreach Consultant Name Role Phone Ly Mendoza MD Primary Care Provid er Encounter Details Date Type Department Care Team (Late st Contact Info) Description 02/24/2019 Ancillary Orders [facility] [address] [place] [address] [place] [address] Georges Hamilton, DO [address] [place] [address] Palpitations Social History Tobacco Use Types Packs/Day Years Used Date Smoking Tobacco: Never Assessed Comments Unknown Sex and Gender Information Value Date Recorded Sex Assigned at Not on file Legal Sex Female 1:34 PM EDT Gender Identity Not on file Sexual Orientation Not on file documented as of this encounter Plan of Treatment Not on file documented as of this encounter Results * Holter Monitor 48 Hours (02/24/2019 3:04 PM EDT) Anatomical Region Laterality Modality Heart Other Narrative 02/24/2019 4:25 PM EDT 48-hour monitor: Baseline rhythm is sinus with average 86 bpm. Occasional PACs and PVCs present. There is no diary returned. There are no patient markers. Impression: Normal 48-hour monitor. No symptoms reported. Procedure Note Lenny Pack MD - 02/24/2019 48-hour monitor: Baseline rhythm is sinus with average 86 bpm. OccasionalPACs and PVCs present. There is no diary returned. There are no patientmarkers. Impression: Normal 48-hour monitor. No symptoms reported. us Georges Hamilton DO [facility] ORDERABLE S Final Result documented in this encounter Visit Diagnoses Diagnosis Palpitations Palpitations documented in this encounter Care Teams Outreach Consultant Relationship Specialty Start Date End Date Ly Mendoza MD [address] [place] [address] PCP - General 02/24/19 documented as of this encounter Additional Source Comments The information contained in this document represents components of the legal health record. It is not the complete legal health record.[facility]
--- OUTSIDE RECORDS SUMMARY | 2025-10-18 13:51 | XMS_ITS | Clinical Summary ---
Author Organization [facility] Address [address] [place], [place] [phone] Phone Care Team Providers Care Eyeglass Inspector Name Role Phone Ly Mendoza MD Primary Care Provid er Social History Tobacco Use Types Packs/Day Years Used Date Smoking Tobacco: Never Assessed Education Answer Date Recorded Are you interested in more education? Not on marietta e 02/28/2023 Are you concerned about learning? Not on file 02/28/2023 No 02/28/2023 No 02/28/2023 Digital Access Answer Date Recorded No 04/01/2023 No 04/01/2023 No 04/01/2023 Reliable internet access at home? Not on file 04/01/2023 Device with a working camera? Not on file Comments Unknown Sex and Gender Information Value Date Recorded Sex Assigned at Not on file Legal Sex Female 1:34 PM EDT Gender Identity Not on file Sexual Orientation Not on file Plan of Treatment Not on file Medical Devices Not on file Insurance [facility] [place] [address] [place] [address] [place] [address] [place] [address] [place] [place] [address] [place] [id number] [facility] [place] [address] [place] [address] [place] [address] [place] [address] [employer] [facility] Care Teams Eyeglass Inspector Relationship Specialty Start Date End Date Ly Mendoza MD [address] [place] [address] PCP - General 02/24/19 Additional Source Comments The information contained in this document represents components of the legal health record. It is not the complete legal health record.[facility]
--- OUTSIDE RECORDS SUMMARY | 2025-10-18 13:51 | XMS_ITS | Encounter Summary ---
Author Organization [facility] Address [address] [place] [phone] Phone Care Team Providers Care Grants Specialist Name Role Phone Ly Mendoza MD Primary Care Provid er Encounter Details Date Type Department Care Team (Late st Contact Info) Description 02/24/2019 Ancillary Orders [facility] [address] [place] [id number] Georges Hamilton, DO [address] [place] [address] Palpitations Social History Tobacco Use Types Packs/Day Years Used Date Smoking Tobacco: Never Assessed Comments Unknown Sex and Gender Information Value Date Recorded Sex Assigned at Not on file Legal Sex Female 1:34 PM EDT Gender Identity Not on file Sexual Orientation Not on file documented as of this encounter Plan of Treatment Not on file documented as of this encounter Visit Diagnoses Diagnosis Palpitations documented in this encounter Care Teams Grants Specialist Relationship Specialty Start Date End Date Ly Mendoza MD [address] [place] [address] PCP - General 02/24/19 documented as of this encounter Additional Source Comments The information contained in this document represents components of the legal health record. It is not the complete legal health record.[facility]
--- OUTSIDE RECORDS SUMMARY | 2025-10-18 13:51 | XMS_ITS | Encounter Summary ---
Author Organization [facility] Address [address] [place] [phone] Phone Care Team Providers Care Scale Technician Name Role Phone Ly Mendoza MD Primary Care Provid er Encounter Details Date Type Department Care Team (Late st Contact Info) Description 02/24/2019 Ancillary Orders [facility] [address] [place] [phone] Georges Hamilton, DO [address] [place] [address] Palpitations Social History Tobacco Use Types Packs/Day [...] Palpitations documented in this encounter Care Teams Scale Technician Relationship Specialty Start Date End Date Ly Mendoza MD [address] [place] [address] PCP - General 02/24/19 documented as of this encounter Additional Source Comments The information contained in this document represents components of the legal health record. It is not the complete legal health record.[facility]
== END 2025-10-18 11:24 | disposition home or self-care (01) ==
PROVIDERS: PCP Internal Medicine; Visit Provider Internal Medicine
DX: L40.9 Psoriasis, unspecified (principal); M47.812 Spondylosis without myelopathy or radiculopathy, cervical region; E55.9 Vitamin D deficiency, unspecified

== ENCOUNTER → 2025-10-18 10:47 | Outpatient (BNVA) | payer OTHER, SELFPAY | PROVIDERS: PCP Internal Medicine; Visit Provider Internal Medicine | DX: M47.812 Spondylosis without myelopathy or radiculopathy, cervical region (principal); E55.9 Vitamin D deficiency, unspecified; L40.9 Psoriasis, unspecified | CPT/HCPCS: 99212 ==